=== PATIENT | male | born 1955 | race Caucasian/White ===

== ENCOUNTER 2017-12-12 09:52 | Inpatient (IN) | payer OTHER, MEDICARE ==
[~2017-12-12] VITALS: Ht 172.7 cm; Wt 113.4 kg
[~2017-12-12 09:52] MED LIST: ALPRAZOLAM2 M2 PO; AMOX-CLAV 875-1 EACH PO; AMOXICILLIN875 M1 PO; ASPIRIN325 M2 PO; ATIVAN2 MG PO; AUGMENTIN 875-1 EACH PO; AVAPRO300 M1 PO; BACTRIM DS TAB1 EACH PO; BUMETANIDE1 M1 PO; CEPHALEXIN500 M3 PO; CIALIS20 M1 PO; COLACE100 M1 PO; CYANOCOBAL1000 MCG/2 IM; DEPLIN-ALGAL O1 EAC1 PO; DESIPRAMINE HC100 MG PO; DESIPRAMINE HCL50 MG PO; ECOTRIN81 MG PO; FISH OIL CONCEN1 SGL PO; FLOMAX0.4 M1 PO; HYDRODIURIL 2525 MG PO; KEFLEX500 M1 PO; KEFLEX500 MG PO; KEY-E400 IU PO; LEVOTHYROXINE125 MCG PO; LITHIUM CARBON300 M5 PO; LOPRESSOR50 MG PO; METOPROLOL TAR100 MG PO; NEXIUM 40MG40 MG PO; NORVASC 5MG TAB5 MG PO; OMEPRAZOLE40 M1 PO; PATANASE30.5 GM NASB; PERCOCET 5-3251 EACH PO; RAPAFLO8 MG PO; RILUZOLE50 MG PO; SYNTHROID0.125 MG PO; TAMSULOSIN HYD0.4 MG PO; TOPROL XL100 M1 PO; TRAZODONE HCL100 MG PO; TRAZODONE HCL300 M1 PO; VENLAFAXINE HC150 M1 PO; VENLAFAXINE HC150 MG PO; VIAGRA100 MG PO; VICODIN5-300 PO; VITAMIN D250000 UNIT PO; VITAMIN E400 UNI3 PO
[2017-12-12 10:51] LABS: ABSOLUTE BASOPHIL COUNT 0 /CUMM (0.0-0.2); ABSOLUTE EOSINOPHIL COUNT 0.2 /CUMM (0.0-0.7); ABSOLUTE GRANULOCYTE CT 4.6 /CUMM (1.4-6.5); ABSOLUTE LYMPH COUNT 1.5 /CUMM (1.2-3.4); ABSOLUTE MONOCYTE COUNT 0.5 /CUMM (0.10-0.60); BASOPHIL % 0.3 % (0.0-2.0); EOSINOPHIL % 3.5 % (0-5); GRANULOCYTE % 67.1 % (42.2-75.2); HEMATOCRIT 42.5 % (42-52); MEAN CORPUSCULAR HGB 28.6 PG (27.0-31.0); MEAN CORPUSCULAR HGB CONC 32.2 G/DL (33.0-37.0); MEAN CORPUSCULAR VOLUME 88.9 FL (80.0-94.0); MEAN PLATELET VOLUME 8.2 FL (7.4-10.4); PLATELET COUNT 205 /CUMM (130-400); RBC DISTRIBUTION WIDTH 15.4 % (11.5-14.5); RED BLOOD CELL CT 4.78 /CUMM (4.70-6.10); WHITE BLOOD CELL COUNT 6.8 /CUMM (4.8-10.8)
[2017-12-12 11:12] LABS: PT 12.1 SEC (9.4-12.5); PTT 30 SEC (25-37)
[2017-12-12] MEDS ORDERED: METOPROLOL SUC200 M2 PO (11:34)
--- NOTE | 2017-12-12 11:38 | RADIOLOGY REPORT ---
EXAMINATION: XR CHEST CLINICAL INFORMATION: Preop. COMPARISON: Chest radiograph 12/02/2017, chest CT 02/11/2017. TECHNIQUE: 2 views of the chest were obtained. FINDINGS: The heart and pulmonary vessels appear normal. There is a question of a lung nodule seen overlying the 6th left anterior rib end. At the time of the patient's prior CT, the nipple was seen to be significantly higher. No infiltrates or effusions are seen. A left shoulder prosthesis is present. IMPRESSION: Question of left-sided lung nodule. A CT scan is recommended for further evaluation.
--- NOTE | 2017-12-12 12:33 | ED NECK/BACK PAIN COMPLAINT ---
History of Present Illness General Chief Complaint: Low Back Pain/Injury Stated Complaint: BACK PAIN Source: patient, old records Exam Limitations: no limitations Vital Signs & Intake/Output Vital Signs & Intake/Output Vital Signs Date Time Temp Pulse Resp B/P B/P Pulse O2 O2 Flow FiO2 Mean Ox Delivery Rate 12/12 1521 98.8 86 20 120/60 96 Room Air 12/12 1221 97.5 98 18 149/77 95 12/12 1218 97.3 69 18 127/65 94 12/12 0953 96.9 70 18 155/79 96 Room Air Room Air Allergies Coded Allergies: furosemide (Severe, ANAPHYLAXIS 07/22/16) amlodipine (UNKNOWN 07/22/16) Reconcile Medications Aspirin (Aspirin*) 325 MG TABLET 1 TAB PO BID ANTI-COAGULATION Bumetanide 1 MG TABLET 1 TAB PO DAILY EDEMA (Reported) Cyanocobalamin (Vitamin B-12) (Cyanocobalamin Injection) 1,000 MCG/ML VIAL 1 ML IM Q30D HEALTH SUPPLEMENT (Reported) Desipramine HCl 100 MG TABLET 1 TAB PO BID MENTAL HEALTH (Reported) Ergocalciferol (Vitamin D2) (Vitamin D2) 50,000 UNIT CAPSULE 1 CAP PO [id number] HEALTH SUPPLEMENT (Reported) Irbesartan (Avapro) 300 MG TABLET 1 TAB PO DAILY BP (Reported) Levothyroxine Sodium 125 MCG TABLET 1 TAB PO DAILY THYROID HEALTH (Reported) [place] Carbonate 300 MG TABLET 2 TAB PO QHS MENTAL HEALTH (Reported) Lorazepam (Ativan) 2 MG TABLET 0.5 TAB PO TID ANXIETY (Reported) Metformin HCl 500 MG TABLET 1 TAB PO BID DM (Reported) Metoprolol Succinate 200 MG TAB.ER.24H 1 TAB PO DAILY HEART (Reported) Mirabegron (Myrbetriq) 50 MG TAB.ER.24H 25 MG PO DAILY BPH (Reported) Omeprazole 40 MG CAPSULE.DR 1 CAP PO DAILY GERD (Reported) Tamsulosin HCl (Flomax) 0.4 MG CAP.ER.24H 1 CAP PO DAILY (Reported) Trazodone HCl 300 MG TABLET 1 TAB PO QPM PRN SLEEP (Reported) Venlafaxine HCl (Venlafaxine HCl ER) 150 MG CAP.ER.24H 2 CAP PO DAILY DEPRESSION (Reported) Triage Note: PT TO ED WITH C/O MID BACK PAIN "I HAVE HAD 8 BACK SURGERIES IN THE PAST", PT CAME FROM [facility] OFFICE. Triage Nurses Notes Reviewed? yes Onset: Abrupt Duration: week(s): (2), constant, continues in ED Timing: recent history Quality/Severity: moderate, severe Location: C-spine, T-spine HPI: 62-year-old male comes into the emergency room for further evaluation of back pain. Patient reports that he's been having increased pain over the last couple weeks. He's had some urinary incontinence and stool incontinence. Some weakness and tingling going down to his legs bilaterally. Denies any fever chills vomiting. Denies any other associated symptoms. He was sent in by orthopedic surgeon Arnold Johnson MD for surgery. (Edmond Rojo) Past History Travel History Traveled to [place] past 21 day No Medical History Any Pertinent Medical History? see below for history Neurological: NONE EENT: NONE Cardiovascular: hypertension, hyperlipidemia Respiratory: obstructive sleep apnea Gastrointestinal: GERD Hepatic: NONE Renal: NONE Musculoskeletal: MULTIPLE BACK SX RT HIP REPLACEMENT RT KNEE REPLACEMENT LT SHOULDER SX BILAT CARPAL TUNNEL SX Psychiatric: anxiety, depression, insomnia Endocrine: diabetes, hypothyroidism Blood Disorders: NONE Cancer(s): liver cancer, prostate cancer History of MRSA: No History of VRE: No History of CDIFF: No Tetanus Vaccine: 04/22/16 Surgical History Surgical History: non-contributory, R TOTAL HIP T TOTAL KNEE L SHOULDER ROTATOR CUFF PARATHYROIDECTOMY LUMBAR FUSION Psychosocial History Who do you live with Significant Other Services at Home None What is your primary language Ivorian Tobacco Use: Never used ETOH Use: occasional use Illicit Drug Use: marijuana Family History Hx Contributory? No (Edmond Rojo) Review of Systems Review of Systems Constitutional: Reports: no symptoms. Eyes: Reports: no symptoms. Ears, Nose, Throat, Mouth: Reports: no symptoms. Respiratory: Reports: no symptoms. Cardiovascular: Reports: no symptoms. Gastrointestinal/Abdominal: Reports: no symptoms. Musculoskeletal: Reports: see HPI. Skin: Reports: no symptoms. Neurological/Psychological: Reports: no symptoms. All Other Systems: Reviewed and Negative (Edmond Rojo) Physical Exam Physical Exam General Appearance: well developed/nourished, mild distress Head: atraumatic Eyes: Bilateral: normal appearance. Ears, Nose, Throat, Mouth: hearing grossly normal, moist mucous membrane Neck: normal inspection, full range of motion Respiratory: normal breath sounds, no respiratory distress Cardiovascular: regular rate/rhythm Gastrointestinal: soft, non-tender Back: normal inspection, tenderness midline Extremities: non-tender, normal range of motion Neurologic/Psych: awake, alert, oriented x 3, normal mood/affect Skin: intact, normal color, warm/dry Comments: 4/5 strength bilateral lower extremities, patellar reflex 2+ bilaterally, gross sensation intact Core Measures CVA/TIA Diagnosis: No (Raymond CANNON,Edmond) Progress Differential Diagnosis: C spine injury, carotid dissection, cauda equina syn, herniated disc, myofascial strain, pyelo/UTI, sciatica, spinal cord inj, ureterolithiasis Plan of Care: Orders Procedure Date/time Status Nothing by Mouth 12/13 B Active Regular Diet 12/12 D Complete Weight 12/12 1521 Active Vital Signs 12/12 1521 Active Teach/Educate 12/12 1521 Active Pain Treatment and Response 12/12 1521 Active Nutritional Intake, Monitor 12/12 1521 Active Isolation 12/12 1521 Active Intake & Output 12/12 1521 Active Patient Care Conference 12/12 1521 Active Activity/Ambulation 12/12 1521 Active Misc Message 12/12 1307 Active ED Holding Orders 12/12 1307 Active Admit to inpatient 12/12 1307 Active Pathway - chart 12/12 1236 Active Patient Data 12/12 1236 Active Code Status 12/12 1236 Active TROPONIN LEVEL 12/12 1026 Complete PARTIAL THROMBOPLASTIN TIME 12/12 1026 Complete PROTHROMBIN TIME 12/12 1026 Complete COMPREHENSIVE METABOLIC PANEL 12/12 1026 Complete CBC WITHOUT DIFFERENTIAL 12/12 1026 Complete EKG 12/12 1026 Active TYPE & SCREEN (NOT X-MATCH) 12/12 1026 Complete VTE Mechanical Prophylaxis 12/12 UNK Active Vital Signs 12/12 UNK Active Intake & Output 12/12 UNK Active CMS- Neurovascular Checks 12/12 UNK Active Activity/Ambulation 12/12 UNK Active Current Medications Sig/Lillian Start time Last Medication Dose Stop Time Status Admin Bumetanide 1 MG DAILY 12/13 09 AC (Bumex) Losartan Potassium 50 MG DAILY 12/13 09 AC (Cozaar) Metoprolol Succinate 200 MG DAILY 12/13 09 AC (Toprol Xl) Tamsulosin HCl 0.4 MG DAILY 12/13 09 AC (Flomax) Venlafaxine HCl 300 MG 12/13 0800 AC (Effexor Xr) Levothyroxine Sodium 0.125 MG DAILY AC 12/13 07 AC (Synthroid) Omeprazole 40 MG DAILY AC 12/13 07 AC (Prilosec) Dextrose/Sodium 1,000 ML .[id number] 12/12 2200 AC 12/12 Chloride 1418 (D5W-1/2 Normal Saline 1000ML) Desipramine HCl 100 MG BID 12/12 2099 AC (Norpramin 25MG Tab) [place] Carbonate 600 MG AT BEDTIME 12/12 2100 AC Heparin Sodium 5,000 UNIT Q8 12/12 1400 AC 12/12 (Porcine) 1417 Acetaminophen 650 MG Q4P PRN 12/12 1300 AC (Tylenol) Oxycodone/ 1 TAB Q4P PRN 12/12 1300 AC Acetaminophen (Percocet) Oxycodone/ 2 TAB Q4P PRN 12/12 1300 AC 12/12 Acetaminophen 1721 (Percocet) Lorazepam 1 MG TID PRN 12/12 1245 AC (Ativan) Ondansetron HCl 4 MG Q8P PRN 12/12 1245 AC (Zofran) Trazodone HCl 300 MG AT BEDTIME NEED.. 12/12 1245 AC (Desyrel) Zolpidem Tartrate 5 MG AT BEDTIME NEED.. 12/12 1245 CAN (Ambien) Laboratory Tests 12/12/17 1030: Anion Gap 12, Estimated GFR > 60, BUN/Creatinine Ratio 26.3 H, Glucose 129 H, Calcium 8.9, Total Bilirubin 0.6, AST 92 H, ALT 176 H, Alkaline Phosphatase 88 , Troponin I < 0.01, Total Protein 7.6, Albumin 4.5, Globulin 3.1, Albumin/ Globulin Ratio 1.5, PT 12.1, INR 1.11, APTT 30, CBC w Diff NO MAN DIFF REQ, RBC 4.78, MCV 88.9, MCH 28.6, MCHC 32.2 L, RDW 15.4 H, MPV 8.2, Gran % 67.1, Lymphocytes % 22.3, Monocytes % 6.8, Eosinophils % 3.5, Basophils % 0.3, Absolute Granulocytes 4.6, Absolute Lymphocytes 1.5, Absolute Monocytes 0.5, Absolute Eosinophils 0.2, Absolute Basophils 0 Diagnostic Imaging: Viewed by Me: Radiology Read. Discussed w/RAD: Radiology Read. Radiology Impression: PATIENT: CALDERON VAN PRESENT AGE: 62 PATIENT ACCOUNT NO: [id number] : 56 LOCATION: [facility] ORDERING PHYSICIAN: Idalmis CANNON SERVICE DATE: 12/12/17 EXAM TYPE: RAD - XRY-CHEST XRAY, TWO VIEWS EXAMINATION: XR CHEST CLINICAL INFORMATION : Preop. COMPARISON: Chest radiograph 12/02/2017, chest CT 02/11/2017. TECHNIQUE : 2 views of the chest were obtained. FINDINGS: The heart and pulmonary vessels appear normal. There is a question of a lung nodule seen overlying the 6th left anterior rib end. At the time of the patient's prior CT, the nipple was seen to be significantly higher. No infiltrates or effusions are seen. A left shoulder prosthesis is present. IMPRESSION: Question of left-sided lung nodule. A CT scan is recommended for further evaluation. DICTATED BY: Brenden Nicole MD DATE/TIME DICTATED:12/12/171101 MANAGER MANAGING:HERMES DATE/TIME TRANSCRIBED:1101 CONFIDENTIAL, DO NOT COPY WITHOUT APPROPRIATE AUTHORIZATION. 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 IV pain control. This is an extensive surgery. Short term rehabilitation. Physical therapy consultation. Repeat labs. (Edmond Rojo) PA/COVERSTITCH ELASTIC ATTACHER Co-Sign Statement Statement: ED Attending supervision documentation- [X] I saw and evaluated the patient. I have also reviewed all the pertinent lab results and diagnostic results. I agree with the findings and the plan of care as documented in the PA's/COVERSTITCH ELASTIC ATTACHER's documentation. Patient presents for evaluation of worsening herniation of the thoracic spine. Physical examination reveals normal deep tendon reflexes and sensation to the lower extremities. [] I have reviewed the ED Record and agree with the PA's/COVERSTITCH ELASTIC ATTACHER's documentation. [] Additions or exceptions (if any) to the PAs/COVERSTITCH ELASTIC ATTACHER's note and plan are summarized below: [] (Dulce Maria SALES,Petey Cardoza)
--- NOTE | 2017-12-12 12:50 | Cons- Medical ---
Reji SALES,[facility] 12/12/17 1250: General Information and HPI Consulting Request Date of Consult: 12/12/17 Requested By: Elizabeth SALES,Arnold Ricketts History of Present Illness: Patient is 62-year-old male with past medical history significant for hypertension, hyperlipidemia, DM HGA1C Jan 2018 7.5 on metformin anxiety, bipolar, depression, GERD, parathyrodectomy ? follow-up with Dr. rojo, hypothyrodism, extensive surgical history that includes 29 surgeries 8 of them for the back L3-S1 fusion last procedure 1995 who presents to ED with chief complaint of severe lower back pain associated with weakness of bilateral lower extremity and left foot numbness along with stool and urine incontinence. Patient reported new onset of low back pain 3 months ago without precipitated trauma or injury to the back, pain radiating to left leg, to bilateral legs as "an electrical shot" upon movement, bilateral lower extremity weakness with increase fall risk, total number of falls in the last 6 months is 4-5 timesdm with multiple bilateral patino bruises. On Saturday patient was evaluated by Dr. Johnson, was on pain medication and steroid pack that was prescribed by orthopedic surgeon without significant relive of his symptoms, today symptoms got worse in terms of pain and incontinence and patient was sent by Arnold Johnson MD to ED for admission. Cardiac baig; patient has abnormal reversal ischemia on nuclear imaging study of stress test, cardiac cath was obtained in 2006 with normal coronary arteries. Patient had a PET scan in 2016 that showed reduced EF 48% lightly lower than on the previous study when it was 62% 2013. A Small mild region of reversible ischemia suggested in the mid anterior wall. This is a subtle finding that could represent an imaging artifact, but the appearance appears to BE attached change since the previous study. No other perfusion abnormalities are noted. Left ventricular wall motion. Patient denied any history of chest pain, palpitation, shortness of breath. He has chronic bilateral lower extremity edema was on Lasix however due to allergy patient was switched on Bumex. Patient is able to walk 2 blocks and go up a flight of stairs without chest pain or shortness of breath. Patient does not have any history of stroke, seizures however has bipolar disorder on lithium. Patient denied any history of smoking, no asthma or COPD, reported bronchitis couple of years ago. Patient denied any history of complication to anesthesia, reported chronic neck pain due to "defect in C5" ,Last intubation was July 2017 for left knee arthroscopy without complication. Allergies/Medications Allergies: Coded Allergies: furosemide (Severe, ANAPHYLAXIS 07/22/16) amlodipine (UNKNOWN 07/22/16) Home Med List: Aspirin (Aspirin*) 325 MG TABLET 1 TAB PO BID ANTI-COAGULATION Bumetanide 1 MG TABLET 1 TAB PO DAILY EDEMA (Reported) Cyanocobalamin (Vitamin B-12) (Cyanocobalamin Injection) 1,000 MCG/ML VIAL 1 ML IM Q30D HEALTH SUPPLEMENT (Reported) Desipramine HCl 100 MG TABLET 1 TAB PO BID MENTAL HEALTH (Reported) Ergocalciferol (Vitamin D2) (Vitamin D2) 50,000 UNIT CAPSULE 1 CAP PO [id number] HEALTH SUPPLEMENT (Reported) Irbesartan (Avapro) 300 MG TABLET 1 TAB PO DAILY BP (Reported) Levothyroxine Sodium 125 MCG TABLET 1 TAB PO DAILY THYROID HEALTH (Reported) [place] Carbonate 300 MG TABLET 2 TAB PO QHS MENTAL HEALTH (Reported) Lorazepam (Ativan) 2 MG TABLET 0.5 TAB PO TID ANXIETY (Reported) Metformin HCl 500 MG TABLET 1 TAB PO BID DM (Reported) Metoprolol Succinate 200 MG TAB.ER.24H 1 TAB PO DAILY HEART (Reported) Mirabegron (Myrbetriq) 50 MG TAB.ER.24H 25 MG PO DAILY BPH (Reported) Omeprazole 40 MG CAPSULE.DR 1 CAP PO DAILY GERD (Reported) Tamsulosin HCl (Flomax) 0.4 MG CAP.ER.24H 1 CAP PO DAILY (Reported) Trazodone HCl 300 MG TABLET 1 TAB PO QPM PRN SLEEP (Reported) Venlafaxine HCl (Venlafaxine HCl ER) 150 MG CAP.ER.24H 2 CAP PO DAILY DEPRESSION (Reported) Past History Travel History Traveled to [place] past 21 day No Medical History Neurological: NONE EENT: NONE Cardiovascular: hypertension, hyperlipidemia Respiratory: obstructive sleep apnea Gastrointestinal: GERD Hepatic: NONE Renal: NONE Musculoskeletal: MULTIPLE BACK SX RT HIP REPLACEMENT RT KNEE REPLACEMENT LT SHOULDER SX BILAT CARPAL TUNNEL SX Psychiatric: anxiety, depression, insomnia Endocrine: diabetes, hypothyroidism Blood Disorders: NONE Cancer(s): liver cancer, prostate cancer Surgical History Surgical History: non-contributory, R TOTAL HIP T TOTAL KNEE L SHOULDER ROTATOR CUFF PARATHYROIDECTOMY LUMBAR FUSION Psychosocial History Services at Home: None ETOH Use: occasional use Illicit Drug Use: marijuana Functional Ability ADLs Independent: dressing, eating, toileting, bathing. Exam & Diagnostic Data Last 24 Hrs of Vital Signs/I&O Vital Signs Date Time Temp Pulse Resp B/P B/P Pulse O2 O2 Flow FiO2 Mean Ox Delivery Rate 12/12 1221 97.5 98 18 149/77 95 12/12 1218 97.3 69 18 127/65 94 12/12 0953 96.9 70 18 155/79 96 Room Air Room Air Intake & Output 12/12 1600 12/12 0800 12/12 0000 Intake Total Output Total Balance Patient 113.398 kg Weight Weight Reported by Patient Measurement Method Physical Exam General Appearance: no apparent distress, alert, awake Head: atraumatic, normal appearance Eyes: Bilateral: normal appearance, PERRL, EOMI. Ears, Nose, Throat: normal pharynx, normal ENT inspection Neck: normal inspection, supple, full range of motion, tenderness on palpation Respiratory: normal breath sounds, chest non-tender, no respiratory distress Cardiovascular: regular rate/rhythm Gastrointestinal: normal bowel sounds, soft, non-tender Back: vertebral tenderness Extremities: normal inspection, normal capillary refill, normal range of motion, bilateral lower extermities edema L>R Neurologic/Psych: awake, alert, motor/sensory deficits, of lower extermities Cranial Nerves: normal hearing, normal speech, PERRL Reflexes: 1+: ankle (R), ankle (L). Last 24 Hrs of Labs/Jose R: Laboratory Tests 12/12/17 1030: Anion Gap 12, Estimated GFR > 60, BUN/Creatinine Ratio 26.3 H, Glucose 129 H, Calcium 8.9, Total Bilirubin 0.6, AST 92 H, ALT 176 H, Alkaline Phosphatase 88 , Troponin I < 0.01, Total Protein 7.6, Albumin 4.5, Globulin 3.1, Albumin/ Globulin Ratio 1.5, PT 12.1, INR 1.11, APTT 30, CBC w Diff NO MAN DIFF REQ, RBC 4.78, MCV 88.9, MCH 28.6, MCHC 32.2 L, RDW 15.4 H, MPV 8.2, Gran % 67.1, Lymphocytes % 22.3, Monocytes % 6.8, Eosinophils % 3.5, Basophils % 0.3, Absolute Granulocytes 4.6, Absolute Lymphocytes 1.5, Absolute Monocytes 0.5, Absolute Eosinophils 0.2, Absolute Basophils 0 Diagnostic Data EKG Results Bigeminy sinus rhythm, rate 75, QTc 452 CXR Results EXAM TYPE: RAD - XRY-CHEST XRAY, TWO VIEWS EXAMINATION: XR CHEST CLINICAL INFORMATION: Preop. COMPARISON: Chest radiograph 12/02/2017, chest CT 02/11/2017. TECHNIQUE: 2 views of the chest were obtained. FINDINGS: The heart and pulmonary vessels appear normal. There is a question of a lung nodule seen overlying the 6th left anterior rib end. At the time of the patient's prior CT, the nipple was seen to be significantly higher. No infiltrates or effusions are seen. A left shoulder prosthesis is present. IMPRESSION: Question of left-sided lung nodule. A CT scan is recommended for further evaluation. Assessment/Plan Assessment/Plan Patient is 62-year-old male with past medical history significant for hypertension, hyperlipidemia, DM HGA1C Jan 2018 7.5 on metformin anxiety, bipolar, depression, GERD, parathyrodectomy ? follow-up with Dr. rojo, hypothyrodism, extensive surgical history that includes 29 surgeries 8 of them for the back L3-S1 fusion presented to ED with chief complaint of severe lower back pain associated with weakness, numbness of lower extremity and bladder bowel incontinence. On recent MRI cervical, thoracic and lumbar spine 12/06/17 it showed 1. There is severe facet arthropathy on the left at C2-C3. 2. There is a posterior disc protrusion at C5-C6 which mildly compresses the spinal cord and there is moderate to severe central stenosis. 3. Posterior disc protrusions. 4. There has been no interval change in the disc protrusion at T10-T11 which compresses the spinal cord and contributes to severe central stenosis. 5. There are posterior disc protrusions at T11-T12 and T12-L1 contributing to central stenosis and foraminal narrowing. 6. There are multilevel spondylitic changes at other levels as described above. Patient reversed cardiac index risk is 1 point 0.9% for reduced ejection fraction however no clinical congestive heart failure symptoms or signs. Patient has bigeminy on EKG with looks like new. Recommendation - Cardiac clearance consultation is pending. - We recommend obtaining bilateral lower extremity venous doppler scan to rule out DVT since patient has bilateral lower extremites swelling left more than right and his activity is suboptimal. - Please start NovoLog sliding scale as patient is diabetic on metformin as an outpatient. -Outpatient follow-up for lung nodules, patient does not have any respiratory symptoms, denied any pulmonary disease asthma, COPD, interstitial lung disease, using inhaler or requiring oxygen. Case discussed with attending Dr. Amos. Consult Acknowledgment - Thank you for your consult request. George Choe MD 12/12/17 6110: Assessment/Plan Consult Acknowledgment - Thank you for your consult request. Attending MD Review Statement Attending Statement Attending MD Statement: examined this patient, discuss w/resident/PA/MANUFACTURING COST ESTIMATOR, agreed w/resident/PA/MANUFACTURING COST ESTIMATOR, reviewed EMR data (avail), reviewed images, amended to note Attending Assessment/Plan: The patient is a 62 yo male with h/o HTN, HL, DM2, biplar (anxiety/depression), GERD, hypothyroid, h/o hyperparathyroid (s/p parathyroidectom), chronic back pain and multiple surgeries in past (29) who presente in the ED with c/o severe, progressive lower back pain with bilateral LE weakness and left foot numbness along with some stool and urinary incontinence. He has had multiple falls over last 6 months. He did receive an injection by Dr. Johnson as an outpatient and received a Medrol Dosepak orally. He does have a h/o CAD followed by Dr. Houston- had a prior equivocally positive nuclear stress test and subsequent cardiac cath that was without significant stenosis. He denies any exertional angina or dyspnea at the level of exercise he may do with back issues. On nuclear scan his LVEF was 45% (2016) compared to prior ECHO 62% (2013). Physical Exam: VS: T 96.9, P 70, R 18, BP 155/79, PO 96% RA HEENT: eyes- PERRLA, EOMI larisa- dry mucosa Neck: supple, no bruits or JVD Chest: diminished BS at bases Cor: RRR nl S1, S2 w/o murm Abd: BS+, soft, NT Ext: + bilateral edema LE L>R (chronc per patient) Neuro: alert & oriented x 3, RLE 4/5 motor, decreased sensory calf/foot LLE Labs/Tests- as above Impression/Plan: #Back Pain- patient with h/o multiple surgeries and recent MRI shows T10-11 disc herniation. Concern regarding LE numbness/weakness and ?incontinence. Cord compression would be of concern. Plan: Admit to orthopedic service- close monitoring of vitals and neuro exam LE. If deteriorates will need emergent surgery. Will plan on surgical intervention tomorrow. #CAD- h/o CAD with negative cath recently and no active ischemic symptoms. RCRI caldulated as above. Plan: Benefit of surgery outweighs risk. Await input from Dr. Houston. #HTN- BP as above. Plan: Continue ARB (was on Avapro- substitute Losartan) and Metoprolol. #Hypothyroid- on Levothyroxine. Plan: Continue Levothyroxine. #BPH- on Tamsulosin. Plan: Continue Tamsulosin. #Anxiety/Bipolar- on chronic Venlafaxine, Horicon, Trazadone. Plan: Continue meds. #GERD-on Omeprazole. Plan: Continue Omeprazole.
--- NOTE | 2017-12-12 13:07 | History & Physical Pre-Op ---
Evelin Clarke 12/12/17 1251: General Information and HPI MD Statement: I have seen and personally examined GEORGE NAIK and documented this H&P. The patient is a 62 year old M who presented with a patient stated chief complaint of [increasing pain and weakness to lower extremities]. Source of Information: patient, old records Exam Limitations: no limitations History of Present Illness: 62yo male presented to Dr Johnson at the office today for a work up for mid cervical spinal stenosis and T10-11 disc herniation. While in the office his legs buckled under him and he nearly fell. He states that he has been having progressive weakness and has noticed some stress fecal incontinence. He had a recent MRI on 12/06. Due to his worsening balance and gait abnormality, Dr Johnson felt that he would be best served with urgent intervention and he has been sent to the ED for admission. He will require medical and cardiac clearance for surgery. Allergies/Medications Allergies: Coded Allergies: furosemide (Severe, ANAPHYLAXIS 07/22/16) amlodipine (UNKNOWN 07/22/16) Past History Medical History Neurological: NONE EENT: NONE Cardiovascular: hypertension, hyperlipidemia Respiratory: obstructive sleep apnea Gastrointestinal: GERD Hepatic: NONE Renal: NONE Musculoskeletal: MULTIPLE BACK SX RT HIP REPLACEMENT RT KNEE REPLACEMENT LT SHOULDER SX BILAT CARPAL TUNNEL SX Psychiatric: anxiety, depression, insomnia Endocrine: hypothyroidism Blood Disorders: NONE History of MRSA: No History of VRE: No History of CDIFF: No Tetanus Vaccine: 04/22/16 Surgical History Pertinent Surgical History: R TOTAL HIP T TOTAL KNEE L SHOULDER ROTATOR CUFF PARATHYROIDECTOMY LUMBAR FUSION, left reverse shoulder, knee arthroscopies Past Family/Social History Psychosocial History Services at Home None Primary Language: [place] ETOH Use: occasional use Illicit Drug Use: marijuana Functional Ability ADLs Independent: dressing, eating, toileting, bathing. Review of Systems Review of Systems: See HPI Exam & Diagnostic Data Last 24 Hrs of Vital Signs/I&O Vital Signs Date Time Temp Pulse Resp B/P B/P Pulse O2 O2 Flow FiO2 Mean Ox Delivery Rate 12/12 1221 97.5 98 18 149/77 95 12/12 1218 97.3 69 18 127/65 94 12/12 0953 96.9 70 18 155/79 96 Room Air Room Air Intake & Output 12/12 1600 12/12 0800 12/12 0000 Intake Total Output Total Balance Patient 250 lb Weight Weight Reported by Patient Measurement Method Physical Exam: General: alert and oriented times three, in mild distress due to LLE pain Chest: clear anteriorly bilaterally, RRR Abd: soft, good bs Ext: 1+edema BLE Neuro: ENT: no slurring, tongue protrudes in midline, left face seems to have a slight droop at the eye and mouth although that may be normal asymmetry BUE - normosensate, good strength5/5 R leg decreased strength 4/5 at right hip, calf and foot with normal motor L leg with normal strength 5/5 throughout although pt is lying down - ambulation not assessed some numbness to LLE mostly at calf and foot per patient Assessment/Plan Assessment/Plan: 62yo male presents to the ED from the office with worsening balance and gait abnormality with a known T10-11 disc herniation. Discussed with Dr Johnson who is at the bedside admit to his service urgent OR planned for tomorrow - sooner if symptoms worsen Hospitalist (Daija) and Cardiology (Rosemarie) contacted for clearance npo after midnight pain management all labs/ekg/cxr for pre op have been ordered As Ranked By This Provider Problem List: 1. Thoracic disc herniation Elizabeth SALES,[facility]. 12/13/17 1349: General Information and HPI Allergies/Medications Home Med list Aspirin (Aspirin*) 325 MG TABLET 1 TAB PO BID ANTI-COAGULATION Bumetanide 1 MG TABLET 1 TAB PO DAILY EDEMA (Reported) Cyanocobalamin (Vitamin B-12) (Cyanocobalamin Injection) 1,000 MCG/ML VIAL 1 ML IM Q30D HEALTH SUPPLEMENT (Reported) Desipramine HCl 100 MG TABLET 1 TAB PO BID MENTAL HEALTH (Reported) Ergocalciferol (Vitamin D2) (Vitamin D2) 50,000 UNIT CAPSULE 1 CAP PO A15MGNS HEALTH SUPPLEMENT (Reported) Irbesartan (Avapro) 300 MG TABLET 1 TAB PO DAILY BP (Reported) Levothyroxine Sodium 125 MCG TABLET 1 TAB PO DAILY THYROID HEALTH (Reported) [place] Carbonate 300 MG TABLET 2 TAB PO QHS MENTAL HEALTH (Reported) Lorazepam (Ativan) 2 MG TABLET 0.5 TAB PO TID ANXIETY (Reported) Metformin HCl 500 MG TABLET 1 TAB PO BID DM (Reported) Metoprolol Succinate 200 MG TAB.ER.24H 1 TAB PO DAILY HEART (Reported) Mirabegron (Myrbetriq) 50 MG TAB.ER.24H 25 MG PO DAILY BPH (Reported) Omeprazole 40 MG CAPSULE.DR 1 CAP PO DAILY GERD (Reported) Oxycodone HCl (Roxicodone) 5 MG TABLET 1-2 TAB PO Q4-6 PRN PRN PAIN Tamsulosin HCl (Flomax) 0.4 MG CAP.ER.24H 1 CAP PO DAILY (Reported) Trazodone HCl 300 MG TABLET 1 TAB PO QPM PRN SLEEP (Reported) Venlafaxine HCl (Venlafaxine HCl ER) 150 MG CAP.ER.24H 2 CAP PO DAILY DEPRESSION (Reported) Attending MD Review Statement Attending Statement Attending MD Statement: examined this patient, discuss w/resident/PA/NATURALIZATION EXAMINER, agreed w/resident/PA/NATURALIZATION EXAMINER, reviewed EMR data (avail), reviewed images Attending Assessment/Plan: George Naik is a 62 year old chronically disabled white male with an extensive history of 8 prior lumbar surgeries (multiple discectomies, decompression and ultimately instrumented fusion from L2-L5) who presented after already having stabilized at a significantly neurologically impaired level following recent onset (3 months ago) and subsequent rapid progression ( approximately 1 month ago) of bilateral lower extremity and possible sacral root deficits associated with MRI finding of lower thoracic left greater than right osseoligamentous spinal stenosis exacebated by right herniated disk at T10-T11. His symptoms began 3 months ago with lower thoracic back pain, thoracolumbar paraspinal muscular spasm and left greater than right diffuse leg radiating pain. His rapid progression occurred approximately 1 month ago (several weeks prior to presenting to the office) and included right greater than left leg weakness, left greater than right distal greater than proximal lower extremity numbness with a distinct sensory level at the pelvic rim and inguinal fold including mild involvement of the sacral perineal distribution, left greater than right lower extremity dyscoordination and buckling associated with several falls, gait abnormality, balance difficulty and bowel urgency with minimal occasional stress fecal incontinence. His original symptom onset and his subsequent exacerbation both occurred without specific or even temporally or mechanistically related inciting event, injury or change in activity. He has recently recovered from left reverse total shoulder arthroplasty on 04/03/2017 and arthroscopic partial meniscectomy on 08/14/2017 from he recovered well. In fact, he had just fully recovered from his meniscectomy when these new symptoms began. He does report becoming more active with walking and lifting his grandchildren much more frequently after recovering from his knee surgery which is the only noticeable change that he can recall possibly being associated with his symptomatic and functional worsening. He presented to Dr. Kevin with the above, already profound, symptoms and deficits on 12/02/2017 at which point he was already having sufficient weakness and gait abnormality that he had fallen several times due to imbalance and left greater than right lower extremity buckling. Dr. Kevin immediately sent him for an MRI which was performed on 12/02/2017 and showed severe T10-T11 central canal and left greater than right osseous lateral recess lower thoracic spinal stenosis exacerbated by a right-sided disk herniation further compressing the lower spinal cord (conus ends at approximately T12-L1). Hyperintense cord signal change was seen consistent with cord contusion, myelomalacia and possibly a small central sinus syrinx distal to the compression potentially suggesting a mixed acute on chronic compressive condition. Because of his history and complex presentation, the entire spine was evaluated with separate cervical, thoracic and lumbar studies. Postoperative, degenerative and lesser compressive findings were noted in the mid-cervical spine, at the thoracolumbar junction and in the previously operated lumbar region but none that correlated as well with, appeared to significantly contribute to his primary presenting symptoms and deficits as much as the T10-T11 stenosis exacerbated by HNP at the same level. Although stenotic and possibly associated with significantly lesser symptoms and neurological sequelae his cervical compression was not felt to contraindicate surgery for his primary and potentially functionally debilitating T10-T11 level pathology. Therefore, following his workup, expedited-urgent arrangements were made for surgical decompression. Given the fact that extensive and likely destabilizing unilateral facet and costovertebral resection was planned to remove the disk herniation fragment (which was likely to remained compressive even after dorsal decompression) an uninstrumented fusion was also recommended. Despite his considerable deficit, he had stabilized at a level that he thought would allow him to continue plans for a vacation to [place] and initially wished to postpone treatment until after his return. He was counseled to cancel his his trip and have surgery on an urgent basis and, once the relative risks of immediate surgery versus delayed treatment were discussed, he very reasonably decided to proceed with surgery. Initiation of his surgical arrangements were delayed by only a few days by this patient decision-making process however there was some concern that his balance (and possibly other deficits) may have begun to further worsen during that time. Therefore, once his decision was made to proceed with surgery, he was admitted to the hospital on an urgent basis for preoperative medical optimization and clearance with surgery arranged for the next available open time (the afternoon following admission). His history of symptomatic progression is detailed in office notes. He has fallen several times due to left greater than right leg buckling but has not sustained other injury. He has been disabled for many years due to his lumbar spine which is S/P 8 prior surgeries (1980 to 1995) culminating with L2-L5 instrumented fusion. After a prolonged recovery, he did fairly well with longstanding but tolerable lower back pain but only minimal reported deficits and moderate associated functional disabilities for many years. Prior to this clinical presentation he has been able to function reasonably well with nonvigorous and even some intermittent lifting activities without recurrence or exacerbation of his lumbar conditions. He denies any significant recent history of lumbar axial or radiating symptoms and his previously operated lumbar region does not appear to be a significant contributor to his current symptoms or deficits. He has not been using a cane or walker despite indications and advice to do so when in the house and outside respectively. He understands that he will likely require ambulatory aide during his recovery from surgery and that he might need this long-term depending on the ultimate severity and chronicity of his lower spinal cord injury and deficits. His history of cervical spine, left shoulder, left knee and other symptoms contributing to his overall permanent partial impairment and total disability is detailed in office notes. His cervical spinal symptoms and mild associated radiculopathy generally correlate with radiologic findings and do not appear to contribute significantly to his current exacerbated clinical condition or contraindicate surgical treatment of his primary lower thoracic pathology. Although not contraindicating, the increased risk related to all of his other spinal, musculoskeletal, general medical and general health conditions was felt to be significant and was discussed in detail, clearly understood, accepted, reviewed and confirmed on several occasions by the patient during the consent process prior to surgery. His past medical history is significant for hypertension, hypothyroidism, depression, anxiety, BPH and GERD. There is a history of prostate cancer reported above and beyond his BPH but no additional details are given. He has had the above reported multiple lumbar surgeries, left reverse total shoulder replacement and left knee arthroscopy as well as right carpal tunnel release many years ago complicated by ulnar nerve deficit (ulnar more than radial digit extension and abduction weakness) which has been longstanding, stable and unrelated to any cervical spine symptoms. His history is otherwise unremarkable. Limited more detailed history is available in office notes and hospital medical records. Refer to those documents for additional inforamtion. Only limited outside medical records are available for review. On examination he appears his stated and recorded height, weight and age of 68 inches, 256 pounds and 62 years respectively. He is obese and, in fact, would best be classified in the high sub-morbid obesity category by World Health Organization criteria. He has a prominent and protuberant abdomen with weakened and possibly partially incompetent abdominal wall (possibly associated with partial or complete ventral hernia). His obesity, protuberant abdomen and incompetent abdominal wall musculature will likely further adversely affect his perioperative and long-term risk, treatment options, recovery, prognosis and outcome. Upon standing he has significant balance abnormality requiring noticeable and frequent corrections (often involving overcorrection and compensatory oscilating asymptotic stabilization over several seconds). Some of his overcorrections appear to be related to poorly controlled clonic lower extremity muscle responses. Once he achieves stable balance he is better able to maintain balance but does lose some control (although not as much as when he first stands from prolonged sitting) with his eyes closed. Rhomberg is partially positive with frequent corrections and near-falls (although he never did actually fall on office examination). He tends to fall backwards more than forwards which may adversely affect his ability to regain independent ambulatory function after surgery even with walker assistance and may further indicate and require inpatient rehabiliitation program postoperatively even if he gets noticeable immediate improvement (which he clearly understands cannot be predicted). His coordination deficit is primarily in the lower extremities and does not extend to the trunk or upper extremities. His ambulation is grossly antalgic, moderately ataxic and slightly spastic with a wide based stance and gait. There is a slight clonic component to his gait consistent with his lower extremity neurological examiination below. He tends to walk on his toes ( probably to prevent falling backward which is his tendency). He also tends to lock both knees (particularly his left) presumably to prevent the buckling give- way that he describes (originally only left but now bilateral, left greater than right). This ambulatory pattern seems to worsen the clonic spasticity of his gait as would be expected from the application of his heavy body weight dorsiflexion force to each foot during push-off (similar to clonus testing below which is markedly positive). He nearly fell several times during ambulation testing. He has a prominent, moderately widened and significantly hyertrophic lumbar midline incision with several smaller paramedian incisions (which appear to simply be offset midline incisions rather than intended paramedian incisions such as for percutaneous components of previous procedures) and bilateal large curvilinear posterior iliac wing incisions presumably for extensive (and possibly multiple - no records available) bilateral iliac crest autograft harvest procedures. The remainder of his spinal examination is described in detail in office notes. His lower extremity neurological examination is significant for a sensory level at approximately L1 slightly higher on the left than on the right beginning anteriorly in the inguinal region, laterally just below and posteriorly just above the iliac wing. The left sided numbness was also slightly more dense than on the right regionally. There was additional sensory deficit above and beyond this baseline in the plantar left foot which the patient stated was reminiscent of deficit that he had years ago from his earlier surgeries but which had largely resolved. Given the radiologic findings, this is more likely to represent a secondary, more proximal, lower thoracic injury to a previously compensated lumbar nerve injury than a recurrence of an old lumbar compression however the patient understands that lumbar contribution cannot be ruled out and may need to be further assessed after his more acute thoracic compression has been treated. he does have a lesser degree of saddle perineal numbness with perianal sparing. He reported that he has been able to feel normal bladder and bowel pressure and function even during his infrequent episodes of slight fecal incontinence (which are likely more related to breakthrough urgency from chronic constipation which has been his baseline and difficult for him to control for years well before this clinical exacerbatoin began). His joint position sense was grossly intact in the great toe, ankle, knee and hip. His motor strength was 5/5 in all major lower extrmeity muscle groups except for 4/5 right EHL and AT with early give-way and 3+/5 right iliopsoas strength. His quadriceps was 5/ 5 bilaterally despite his subjective complaint of giving-way of his knees with ambulation. He was able to demonstrate 5/5 strength on his left leg in all major motor groups despite that side being the one that has been buckling the longest and the most often. Heel to patino was normal bilaterally however rapid sequential motion testing revealed slowed repetitive motion consistent with his functional lower extremity dyscoordination. His lower extremity deep tendon reflexes were hyperactive diffusely except for his left achilles which was slightly hypoactive and may have been diminished at chronic baseline from his deficts and treatments many years ago. His bilateral patellar reflexes were 3+ with one post-reflex clonic beat on the right and 3 post-reflex clonic beats in the left. Suprapatellar responses were 2+. Right achillaes response was 3+ with one post-reflex clonic beat. Left achilles response was 1+-2 without additional post-reflex response. Interestingly, clonus to rapid and forceful ankle dosiflexion was greater on the left (3 beats) than on the right (1 beat) suggesting acute changes on the right and acute on chronic changes on the left. Babinski was negative bilaterally with consistently downgoing (plantar toe flexion) response to plantar foot stimulation. Rectal examination was deferred, Bilateral lower extremity vascular examination was grossly normal with 2+ DP and PT pulses, brisk capillary refill and normal cutaneous visual assessment. Neurovasular and musculoskeletal examination of his cervical and upper thoracic spine, upper extremities, lumbar spine, torso, pelvis as well as his general survey multi-system examination are described in office notes and are noncontributory and generally unremarkable except for findings correlating with his complex history as noted above. These other findings are pertinent to and will be accounted for as much as possible during his perioperative course but are not contraindicating to lower thoracic surgical intervention. Active and controlled passive Lhermitte's and Spurling testing was negative for any response thaat might suggest severe cervical spinal cord compression or significant increased risk (beyond that discussed above) of prone positioning for lower thoracic surgery. He does have baseline upper extremity deficits mostly related to previous left shoulder and carpal tunnel pathologies and his associated carpal tunnel surgery. By patient report these are at baseline and have not changed with the development of his other symptoms and deficits in balance or lower body function. His radiologic studies including multiple MRIs are described above, in office notes and in original radiology reports. Refer to those documents for additional details. The patient is being admitted on an urgent basis for recent slow progression of neurological deficit in the presence of known T10-T11 chronic osseous- ligamentous spinal stenosis likely acutely exacerbated by right paracentral disk herniation associated with lower spinal cord myelomalacia. He originally presented after a period of stable deficit without progression and so initial workup and surgical preparations were made on aan expedited basis. In addition the patient required time to make a final decision regarding proceeding with surgery. He ultimately very appropriately decided to follow recommendations and proceed with surgery particularly once he noted some further worsening. This additional progression prompted his case to be changed to urgent status and the patient was therefore admitted to the hospital on that basis. Preparations are being made for surgery at the first available open time tomorrow. Should his condition worsen further in the interim, we are prepared to further change his status to emergent and proceed with surgery sooner if necessary.
[2017-12-12] MEDS ORDERED: METFORMIN HCL500 M3 PO (13:23)
[2017-12-12] MEDS ORDERED: MYRBETRIQ50 M1 PO (13:25)
--- NOTE | 2017-12-12 14:35 | Cons- Cardiology ---
General Information and HPI Consulting Request Date of Consult: 12/12/17 Requested By: Elizabeth SALES,Arnold Ricketts Reason for Consult: Preoperative cardiovascular examination. Source of Information: patient, old records Exam Limitations: poor historian History of Present Illness: Mr. George Naik is a 62-year-old male with a history of depression , obstructive sleep apnea, hypertension, dyslipidemia, mild COPD, previous chest pain syndrome, left sided adrenal mass with marginal elevation in catecholamines with pheochromocytoma evaluation negative, primary hyperparathyroidism status post parathyroidectomy in 01/03/2010, and previous nonischemic cardiomyopathy that improved with medical management who we are asked to evaluate to help assess his suitability for noncardiac surgery. We had been asked previously to evaluate him for left shoulder surgery and had him undergo a noninvasive evaluation. An echocardiogram was performed on 2015 and revealed a normal-sized left ventricle with normal wall thickness and low normal systolic function with an estimated ejection fraction of 50-55%, normal size and functioning right ventricle, a normal size right and mildly dilated left atrium, some age-related valvular changes, no pericardial effusion, and normal size aortic root. The Doppler portion of the study revealed trace mitral, trace tricuspid, and trace pulmonic regurgitation, normal estimated PA systolic pressure of 26 mmHg, and a diastolic filling pattern consistent with impaired relaxation. A pharmacologic stress test was performed on 04/19/2016 and revealed no electrocardiographic evidence of ischemia, but nuclear evidence of ischemia in the mid anterior wall. Given these findings, he was scheduled for cardiac catheterization that was performed on 05/02/2016 at [facility] that revealed: LM-short and patent, LAD-patent, LCx-patent, RCA dominant, patent, LV gram-mild apical hypokinesis with EF 45-50%. He was cleared for the left shoulder surgery which took place on 06/06/2016 and was uneventful. He subsequently underwent a left reverse total shoulder arthroplasty for severe left shoulder rotator cuff arthropathy without complication on 04/04/2017 and a left knee arthroscopic partial medial meniscectomy and left knee chondroplasty for a left medial meniscal tear on 08/14/2017 that was also uncomplicated. Allergies/Medications Allergies: Coded Allergies: furosemide (Severe, ANAPHYLAXIS 07/22/16) amlodipine (UNKNOWN 07/22/16) Home Med List: Aspirin (Aspirin*) 325 MG TABLET 1 TAB PO BID ANTI-COAGULATION Bumetanide 1 MG TABLET 1 TAB PO DAILY EDEMA (Reported) Cyanocobalamin (Vitamin B-12) (Cyanocobalamin Injection) 1,000 MCG/ML VIAL 1 ML IM Q30D HEALTH SUPPLEMENT (Reported) Desipramine HCl 100 MG TABLET 1 TAB PO BID MENTAL HEALTH (Reported) Ergocalciferol (Vitamin D2) (Vitamin D2) 50,000 UNIT CAPSULE 1 CAP PO [id number] HEALTH SUPPLEMENT (Reported) Irbesartan (Avapro) 300 MG TABLET 1 TAB PO DAILY BP (Reported) Levothyroxine Sodium 125 MCG TABLET 1 TAB PO DAILY THYROID HEALTH (Reported) [place] Carbonate 300 MG TABLET 2 TAB PO QHS MENTAL HEALTH (Reported) Lorazepam (Ativan) 2 MG TABLET 0.5 TAB PO TID ANXIETY (Reported) Metformin HCl 500 MG TABLET 1 TAB PO BID DM (Reported) Metoprolol Succinate 200 MG TAB.ER.24H 1 TAB PO DAILY HEART (Reported) Mirabegron (Myrbetriq) 50 MG TAB.ER.24H 25 MG PO DAILY BPH (Reported) Omeprazole 40 MG CAPSULE.DR 1 CAP PO DAILY GERD (Reported) Tamsulosin HCl (Flomax) 0.4 MG CAP.ER.24H 1 CAP PO DAILY (Reported) Trazodone HCl 300 MG TABLET 1 TAB PO QPM PRN SLEEP (Reported) Venlafaxine HCl (Venlafaxine HCl ER) 150 MG CAP.ER.24H 2 CAP PO DAILY DEPRESSION (Reported) Review of Systems Review of Systems: A 14 point system review was obtained and was noncontributory, other than as above. Past History Travel History Traveled to [place] past 21 day No Medical History Neurological: NONE EENT: NONE Cardiovascular: hypertension, hyperlipidemia Respiratory: obstructive sleep apnea Gastrointestinal: GERD Hepatic: NONE Renal: NONE Musculoskeletal: MULTIPLE BACK SX RT HIP REPLACEMENT RT KNEE REPLACEMENT LT SHOULDER SX BILAT CARPAL TUNNEL SX Psychiatric: anxiety, depression, insomnia Endocrine: hypothyroidism Blood Disorders: NONE Surgical History Surgical History: R TOTAL HIP T TOTAL KNEE L SHOULDER ROTATOR CUFF PARATHYROIDECTOMY LUMBAR FUSION left reverse shoulder knee arthroscopies Psychosocial History Services at Home: None Primary Language: German ETOH Use: occasional use Illicit Drug Use: marijuana Functional Ability ADLs Independent: dressing, eating, toileting, bathing. Exam & Diagnostic Data Vital Signs and I&O Vital Signs Date Time Temp Pulse Resp B/P B/P Pulse O2 O2 Flow FiO2 Mean Ox Delivery Rate 12/12 1221 97.5 98 18 149/77 95 12/12 1218 97.3 69 18 127/65 94 12/12 0953 96.9 70 18 155/79 96 Room Air Room Air Intake & Output 12/12 1600 12/12 0800 12/12 0000 12/11 1600 12/11 0800 12/11 0000 Intake Total Output Total Balance Patient 250 lb Weight Weight Reported by Patient Measurement Method Physical Exam: Well-developed, overweight middle-aged male in no acute distress. Vital signs: See above. HEENT: Normocephalic, atraumatic, EOMI, slightly dry mucous membranes. Neck: No JVD, no bruits. Lungs: Clear to auscultation bilaterally. Heart: S1, S2 with grade 1/6 systolic murmur. No gallop or rub. PMI fifth ICS MCL. Abdomen: Soft, nontender, positive bowel sounds. Extremities: No edema. Labs/Jose R Results: Laboratory Tests 12/12 1030 Chemistry Sodium (137 - 145 mmol/L) 142 Potassium (3.5 - 5.1 mmol/L) 4.2 Chloride (98 - 107 mmol/L) 101 Carbon Dioxide (22 - 30 mmol/L) 29 Anion Gap (5 - 16) 12 BUN (9 - 20 mg/dL) 21 H Creatinine (0.7 - 1.2 mg/dL) 0.8 Estimated GFR (>60 ml/min) > 60 BUN/Creatinine Ratio (7 - 25 %) 26.3 H Glucose (65 - 99 mg/dL) 129 H Calcium (8.4 - 10.2 mg/dL) 8.9 Total Bilirubin (0.2 - 1.3 mg/dL) 0.6 AST (17 - 59 U/L) 92 H ALT (21 - 72 U/L) 176 H Alkaline Phosphatase (< 127 U/L) 88 Troponin I (<0.11 ng/ml) < 0.01 Total Protein (6.3 - 8.2 g/dL) 7.6 Albumin (3.5 - 5.0 g/dL) 4.5 Globulin (1.9 - 4.2 gm/dL) 3.1 Albumin/Globulin Ratio (1.1 - 2.2 %) 1.5 Coagulation PT (9.4 - 12.5 SEC) 12.1 INR (0.90 - 1.17) 1.11 APTT (25 - 37 SEC) 30 Hematology CBC w Diff NO MAN DIFF REQ WBC (4.8 - 10.8 /CUMM) 6.8 RBC (4.70 - 6.10 /CUMM) 4.78 Hgb (14.0 - 18.0 G/DL) 13.7 L Hct (42 - 52 %) 42.5 MCV (80.0 - 94.0 FL) 88.9 MCH (27.0 - 31.0 PG) 28.6 MCHC (33.0 - 37.0 G/DL) 32.2 L RDW (11.5 - 14.5 %) 15.4 H Plt Count (130 - 400 /CUMM) 205 MPV (7.4 - 10.4 FL) 8.2 Gran % (42.2 - 75.2 %) 67.1 Lymphocytes % (20.5 - 51.1 %) 22.3 Monocytes % (1.7 - 9.3 %) 6.8 Eosinophils % (0 - 5 %) 3.5 Basophils % (0.0 - 2.0 %) 0.3 Absolute Granulocytes (1.4 - 6.5 /CUMM) 4.6 Absolute Lymphocytes (1.2 - 3.4 /CUMM) 1.5 Absolute Monocytes (0.10 - 0.60 /CUMM) 0.5 Absolute Eosinophils (0.0 - 0.7 /CUMM) 0.2 Absolute Basophils (0.0 - 0.2 /CUMM) 0 Diagnostic Data EKG Results 12/12/2017: Sinus rhythm, multiple APCs, nonspecific intraventricular conduction delay. More ectopy when compared to previous tracing from 11/27/2011. CXR Results 12/12/2017: Question of left-sided lung nodule. A CT scan is recommended for further evaluation. Other Results MRI cervical spine 12/06/2017:: 1. There is severe facet arthropathy on the left at C2-C3 with edematous signal changes and a facet joint effusion. 2. There is a posterior disc protrusion at C5-C6 which mildly compresses the spinal cord and there is moderate to severe central stenosis. There is moderate to severe bilateral foraminal narrowing. 3. Posterior disc protrusions, facet arthropathic changes and uncovertebral osteophytes contribute to spondylosis at multiple other levels as described above. MRI thoracic spine 12/06/2017: 1. There has been no interval change in the disc protrusion at T10-T11 which compresses the spinal cord and contributes to severe central stenosis. Increased signal within the cord is consistent with myelomalacia or edema. 2. There are posterior disc protrusions at T11-T12 and T12-L1 contributing to central stenosis and foraminal narrowing, also seen on prior imaging. 3. There are multilevel spondylitic changes at other levels as described above. MRI lumbar spine 12/02/2017: 1. An incompletely visualized bulky disc herniation at T10-T11 contributes to severe canal stenosis with deformation of the normal cord contours and cord signal abnormality likely reflecting myelomalacia and/or cord edema. 2. Additional postoperative and superimposed multilevel degenerative changes as described. Assessment/Plan Assessment/Plan [id number] w/ a hx depression, STEPHANY, HTN, HLD, mild COPD, previous CP syndrome, L adrenal mass w/ marginal catecholamine elevation & negative pheochromocytoma evaluation, primary hyperparathyroidism s/p parathyroidectomy in 01/03/2010, and previous nonischemic cardiomyopathy that improved w/ medical Rx who we are asked to evaluate to help assess his suitability for noncardiac surgery. Mr. Naik is dealing with symptomatic cord compression, as documented above by MRI, and is in need of surgery. Mr. Naik has had no recent cardiac Sxs and underwent a cardiac cath at [facility] on 05/02/2016 that revealed no significant epicardial coronary disease. Based on the above, he is cleared for the proposed surgery. Consult Acknowledgment - Thank you for your consult request.
[2017-12-12 15:21] VITALS: BP 120/60
[2017-12-12 23:03] VITALS: BP 126/80
[2017-12-13 06:43] VITALS: BP 118/82
--- NOTE | 2017-12-13 08:46 | PN- Medicine Consult ---
Reji SALES,[facility] 12/13/17 0835: Assessment/PlanMedical Consult Assessment/Plan Assessment: Mr. Naik is 62-year-old male with past medical history significant for hypertension, hyperlipidemia, DM HGA1C Jan 2018 7.5 on metformin anxiety, bipolar, depression, GERD, parathyrodectomy ? follow-up with Dr. rojo, hypothyrodism, extensive surgical history that includes 29 surgeries 8 of them for the back L3-S1 fusion presented to ED with chief complaint of severe lower back pain associated with weakness, numbness of lower extremity and bladder bowel incontinence. Recommendation -Patient was cleared cardiac baig for the surgery -Pain management per surgical team -Continue home medication -Fasting blood sugar is controlled, continue Novolin every 6 hours and switch to NovoLog sliding scale after patient started eat -Consider bowel regimen as patient on Percocet every 3 hours Plan: As above Subjective Subjective: Patient was seen and examined this morning, sitting on the chair, reported back pain despite being on Percocet every 3 hours, pain interfere with his sleep. Patient is alert oriented 3 not in acute distress. Vital signs are stable. N.p.o. for the procedure this afternoon. Denied any chest pain, palpitation, cough, abdominal pain, nausea or vomiting. Review of Systems Constitutional: Reports: see HPI. Objective Last 24 Hrs of Vital Signs/I&O Vital Signs Date Time Temp Pulse Resp B/P B/P Pulse O2 O2 Flow FiO2 Mean Ox Delivery Rate 12/13 0643 97.9 60 18 118/82 97 Room Air 12/12 2303 97.8 60 18 126/80 97 Room Air 12/12 1521 98.8 86 20 120/60 96 Room Air 12/12 1221 97.5 98 18 149/77 95 12/12 1218 97.3 69 18 127/65 94 12/12 0953 96.9 70 18 155/79 96 Room Air Room Air Intake & Output 12/13 1600 12/13 0800 12/13 0000 Intake Total 600 1500 Output Total Balance 600 1500 Intake, IV 600 600 Intake, Oral 0 900 Patient 113.398 kg Weight Weight Reported by Patient Measurement Method Physical Exam General Appearance: well developed/nourished, no apparent distress, alert, awake Head: atraumatic, normal appearance Ears, Nose, Throat: normal pharynx, normal ENT inspection Neck: normal inspection, supple, full range of motion Cardiovascular: regular rate/rhythm Respiratory: normal breath sounds, chest non-tender Abdomen: normal bowel sounds, soft, non-tender Extremities: normal inspection, normal capillary refill, normal range of motion, Bilateral terace pedal edema L>R Daija SALES,George 12/13/172215: Objective Current Medications: Current Medications Sig/Lillian Start time Last Medication Dose Route Stop Time Status Admin Acetaminophen 975 MG Q8 12/13 2200 AC 12/13 PO 212 Acetaminophen 1,000 MG .STK-MED ONE 12/13 1316 DC IV 12/13 1317 Acetaminophen 650 MG Q4P PRN 12/12 1300 DC PO Bumetanide 1 MG DAILY 12/13 0900 AC 12/13 PO 0922 Cefazolin Sodium 2 GM IQ8 12/14 0000 AC N/A 1 UNIT IV 12/15 0000 Desipramine HCl 100 MG BID 12/12 2100 AC 12/13 PO 2123 Dextrose/Sodium 1,000 ML .[id number] 12/12 2200 AC 12/13 Chloride IV 213 Fentanyl Citrate 200 MCG .STK-MED ONE 12/13 1315 DC IM 12/13 1316 Heparin Sodium 5,000 UNIT Q8 12/12 1400 DC 12/13 (Porcine) SC 0554 Insulin Human Regular 0 Q6 12/12 2359 AC 12/13 SC 0554 Levothyroxine Sodium 0.125 MG DAILY AC 12/13 0700 AC 12/13 PO 0554 [place] Carbonate 600 MG AT BEDTIME 12/12 2100 AC 12/13 PO 2123 Lorazepam 1 MG TID PRN 12/12 1245 AC 12/13 PO 2134 Losartan Potassium 50 MG DAILY 12/13 0900 12/13 PO 0919 Metoprolol Succinate 200 MG DAILY 12/13 0900 AC 12/13 PO 1153 Midazolam HCl 4 MG .STK-MED ONE 12/13 1316 DC IM 12/13 1317 Morphine Sulfate 8 MG .STK-MED ONE 12/13 1315 DC IM 12/13 1316 Omeprazole 40 MG DAILY AC 12/13 0700 AC 12/13 PO 0555 Ondansetron HCl 4 MG Q8P PRN 12/12 1245 AC IV Oxycodone HCl 5 MG Q4P PRN 12/13 1930 AC PO Oxycodone HCl 10 MG Q4 HRS NEEDED PRN 12/13 1930 AC 12/13 PO 2122 Oxycodone/ 2 TAB Q3P PRN 12/12 2014 DC 12/13 Acetaminophen PO 0617 Oxycodone/ 1 TAB Q4P PRN 12/12 1300 DC Acetaminophen PO Oxycodone/ 2 TAB Q4P PRN 12/12 1300 DC 12/13 Acetaminophen PO 0922 Patient Medication 1 ED ONE ONE 12/13 1545 DC Teaching ED 12/13 1546 Tamsulosin HCl 0.4 MG DAILY 12/13 0900 AC 12/13 PO 0917 Trazodone HCl 300 MG AT BEDTIME NEED.. 12/12 1245 AC PO Venlafaxine HCl 300 MG 0800 12/13 0800 AC 12/13 PO 0916 Results Last 24 Hrs Lab/Jose R Results: Laboratory Tests 12/12/17 1030: Anion Gap 12, Estimated GFR > 60, BUN/Creatinine Ratio 26.3 H, Glucose 129 H, Calcium 8.9, Total Bilirubin 0.6, AST 92 H, ALT 176 H, Alkaline Phosphatase 88 , Troponin I < 0.01, Total Protein 7.6, Albumin 4.5, Globulin 3.1, Albumin/ Globulin Ratio 1.5, PT 12.1, INR 1.11, APTT 30, CBC w Diff NO MAN DIFF REQ, RBC 4.78, MCV 88.9, MCH 28.6, MCHC 32.2 L, RDW 15.4 H, MPV 8.2, Gran % 67.1, Lymphocytes % 22.3, Monocytes % 6.8, Eosinophils % 3.5, Basophils % 0.3, Absolute Granulocytes 4.6, Absolute Lymphocytes 1.5, Absolute Monocytes 0.5, Absolute Eosinophils 0.2, Absolute Basophils 0 Attending MD Review Statement Attending Sign Off Attending Cosign Statement: I have: examined this patient, reviewed avalbl EMR data, discussd w/resident/PA/ TWISTHAND, discussed mgmt plan w/fely, discussed mgmt plan w/pt, agreed w/resident/PA/TWISTHAND , amended to note. Other Findings: The patient was seen and discussed with resident. Appreciate Cardiology input. Medically stable for planned surgery.
--- NOTE | 2017-12-13 10:24 | ULTRASOUND REPORT ---
EXAMINATION: US TRIPLEX OF LOWER EXTREMITIES, BILATERAL CLINICAL INFORMATION: Bilateral lower extremity pain and swelling COMPARISON: None TECHNIQUE: Color-flow triplex imaging with spectral analysis and compression Doppler were performed on the lower extremities. FINDINGS: Respiratory variation, normal compression and augmented flow are noted throughout the lower extremities. The visualized common femoral vein, superficial femoral vein, profunda femoral vein, popliteal vein and midcalf peroneal and posterior tibial venous segments show no evidence of deep venous thrombosis. There is no Serrano's cyst. IMPRESSION: Normal triplex scan without evidence of deep venous thrombosis involving the lower extremities.
--- NOTE | 2017-12-13 20:58 | RADIOLOGY REPORT ---
EXAMINATION: XR THORACIC SPINE, C-arm imaging CLINICAL INFORMATION: Spine fusion in OR COMPARISON: CT abdomen pelvis 07/25/2010 TECHNIQUE: C-spine imaging for spinal fusion. Fluoroscopy time 13 seconds. Number of images. 11. FINDINGS: Spot views obtained over the lower thoracic spine for fusion of T10 and T11 vertebrae. IMPRESSION: C-spine images during fusion of T10-T11 vertebrae.
[2017-12-13 22:35] VITALS: BP 140/80
--- NOTE | 2017-12-14 01:29 | PN- Orthopedic ---
Subjective Subjective: Patient seen and evaluated for post op check. Reports moderate amount of back pain. Has not been out of bed or ambulated. Rangel in place. Drinking some fluids , but has not eaten. Last BM was several days ago. Otherwise, denies CP, palpitations, sob, n/v/d, f/c/s. Objective Vital Signs and I&Os Vital Signs Date Time Temp Pulse Resp B/P B/P Pulse O2 O2 Flow FiO2 Mean Ox Delivery Rate 12/135 98.9 108 16 140/80 98 Nasal 2.0L Cannula 12/13 2199 98 Nasal 2.0L Cannula 12/13 1153 60 128/80 12/13 0919 60 118/82 12/13 0917 60 118/82 12/13 0643 97.9 60 18 118/82 97 Room Air Intake & Output 12/14 0800 12/14 0000 12/13 1600 12/13 0800 12/13 0000 12/12 1600 Intake Total 630 317 873 4660 Output Total 310 0 Balance 320 957 272 0952 Intake, IV 150 450 600 600 Intake, Oral 480 80 0 900 Output, 60 Drainage Output, Stool 0 Output, Urine 250 Patient 250 lb 250 lb Weight Weight Reported by Patient Reported by Patient Measurement Method Physical Exam: General: pt sitting upright in bed, answering questions without difficulty, nad CV: RRR, +s1s2 Pulm: decreased in b/l bases Abdomen: obese, bs+ Extremities: 2+ DP pulses, warm and well perfused Neuro: b/l iliopsoas/hamstrings/quadrecepts 4-/5, 3+/5 L anterior tibialis/EHL, 4-/5 right anterior tibialis/EHL, several beats of clonus in left ankle, toes upgoing in left foot Wound: c/d/i, JORGE in place with 20mL blood discharge Current Medications: Current Medications Sig/Lillian Start time Last Medication Dose Route Stop Time Status Admin Acetaminophen 975 MG Q8 12/13 2199 AC 12/13 PO 2123 Acetaminophen 1,000 MG .STK-MED ONE 12/13 1316 DC IV 12/13 1317 Acetaminophen 650 MG Q4P PRN 12/12 1300 DC PO Bumetanide 1 MG DAILY 12/13 0900 AC 12/13 PO 0922 Cefazolin Sodium 2 GM IQ8 12/14 0000 AC 12/14 N/A 1 UNIT IV 12/15 0000 0031 Desipramine HCl 100 MG BID 12/12 2100 AC 12/13 PO 2123 Dextrose/Sodium 1,000 ML .[id number] 12/12 2200 AC 12/13 Chloride IV 2136 Fentanyl Citrate 200 MCG .STK-MED ONE 12/13 1315 DC IM 12/13 1316 Heparin Sodium 5,000 UNIT Q8 12/12 1400 DC 12/13 (Porcine) SC 0554 Insulin Human Regular 0 TIDAC 12/14 0800 AC SC Insulin Human Regular 0 Q6 12/12 2359 DC 12/13 SC 0554 Levothyroxine Sodium 0.125 MG DAILY AC 12/13 0700 AC 12/13 PO 0554 [place] Carbonate 600 MG AT BEDTIME 12/12 2100 AC 12/13 PO 2123 Lorazepam 1 MG TID PRN 12/12 1245 AC 12/13 PO 2134 Losartan Potassium 50 MG DAILY 12/13 0900 AC 12/13 PO 0919 Metoprolol Succinate 200 MG DAILY 12/13 0900 AC 12/13 PO 1153 Midazolam HCl 4 MG .STK-MED ONE 12/13 1316 DC IM 12/13 1317 Morphine Sulfate 8 MG .STK-MED ONE 12/13 1315 DC IM 12/13 1316 Omeprazole 40 MG DAILY AC 12/13 0700 AC 12/13 PO 0555 Ondansetron HCl 4 MG Q8P PRN 12/12 1245 AC IV Oxycodone HCl 5 MG Q4P PRN 12/13 1930 AC PO Oxycodone HCl 10 MG Q4 HRS NEEDED PRN 12/13 1930 AC 12/14 PO 0111 Oxycodone/ 2 TAB Q3P PRN 12/12 2015 DC 12/13 Acetaminophen PO 0617 Oxycodone/ 1 TAB Q4P PRN 12/12 1300 DC Acetaminophen PO Oxycodone/ 2 TAB Q4P PRN 12/12 1300 DC 12/13 Acetaminophen PO 0922 Patient Medication 1 ED ONE ONE 12/13 1545 DC Teaching ED 12/13 1546 Tamsulosin HCl 0.4 MG DAILY 12/13 0900 AC 12/13 PO 0917 Trazodone HCl 300 MG AT BEDTIME NEED.. 12/12 1245 AC 12/14 PO 0121 Venlafaxine HCl 300 MG 0800 12/13 0800 AC 04/27 PO 0916 Results Last 48 Hours of Labs: Laboratory Tests 12/12 1030 Chemistry Sodium (137 - 145 mmol/L) 142 Potassium (3.5 - 5.1 mmol/L) 4.2 Chloride (98 - 107 mmol/L) 101 Carbon Dioxide (22 - 30 mmol/L) 29 Anion Gap (5 - 16) 12 BUN (9 - 20 mg/dL) 21 H Creatinine (0.7 - 1.2 mg/dL) 0.8 Estimated GFR (>60 ml/min) > 60 BUN/Creatinine Ratio (7 - 25 %) 26.3 H Glucose (65 - 99 mg/dL) 129 H Calcium (8.4 - 10.2 mg/dL) 8.9 Total Bilirubin (0.2 - 1.3 mg/dL) 0.6 AST (17 - 59 U/L) 92 H ALT (21 - 72 U/L) 176 H Alkaline Phosphatase (< 127 U/L) 88 Troponin I (<0.11 ng/ml) < 0.01 Total Protein (6.3 - 8.2 g/dL) 7.6 Albumin (3.5 - 5.0 g/dL) 4.5 Globulin (1.9 - 4.2 gm/dL) 3.1 Albumin/Globulin Ratio (1.1 - 2.2 %) 1.5 Coagulation PT (9.4 - 12.5 SEC) 12.1 INR (0.90 - 1.17) 1.11 APTT (25 - 37 SEC) 30 Hematology CBC w Diff NO MAN DIFF REQ WBC (4.8 - 10.8 /CUMM) 6.8 RBC (4.70 - 6.10 /CUMM) 4.78 Hgb (14.0 - 18.0 G/DL) 13.7 L Hct (42 - 52 %) 42.5 MCV (80.0 - 94.0 FL) 88.9 MCH (27.0 - 31.0 PG) 28.6 MCHC (33.0 - 37.0 G/DL) 32.2 L RDW (11.5 - 14.5 %) 15.4 H Plt Count (130 - 400 /CUMM) 205 MPV (7.4 - 10.4 FL) 8.2 Gran % (42.2 - 75.2 %) 67.1 Lymphocytes % (20.5 - 51.1 %) 22.3 Monocytes % (1.7 - 9.3 %) 6.8 Eosinophils % (0 - 5 %) 3.5 Basophils % (0.0 - 2.0 %) 0.3 Absolute Granulocytes (1.4 - 6.5 /CUMM) 4.6 Absolute Lymphocytes (1.2 - 3.4 /CUMM) 1.5 Absolute Monocytes (0.10 - 0.60 /CUMM) 0.5 Absolute Eosinophils (0.0 - 0.7 /CUMM) 0.2 Absolute Basophils (0.0 - 0.2 /CUMM) 0 Assessment/Plan Assessment/Plan This is a 62 y/o M w/ PMHx of HTN, HLD, DM, anxiety, bipolar, depression, GERD, and extensive surgical history including multiple spinal surgerys who is now POD #1 s/p T10-T11 laminectomy and diskectomy -Continue current pain meds - ISS, CBGs, hypoglycemia protocol - Bowel regimen - Continue home cardiac meds - continue home psych meds - PT/OT evaluation and treatment - OOB with assistance - Monitor drain output Core Measures Venous Thromboembolism VTE Risk Factors Surgery No Mechanical VTE Prophylaxis d/t N/A MechProphylax Ordered No VTE Pharm Prophylaxis d/t Surgical Contraindication
[2017-12-14 06:13] VITALS: BP 124/76
[2017-12-14 08:32] LABS: ABSOLUTE BASOPHIL COUNT 0 /CUMM (0.0-0.2); ABSOLUTE EOSINOPHIL COUNT 0 /CUMM (0.0-0.7); ABSOLUTE GRANULOCYTE CT 8.3 /CUMM (1.4-6.5); ABSOLUTE LYMPH COUNT 0.7 /CUMM (1.2-3.4); ABSOLUTE MONOCYTE COUNT 0.1 /CUMM (0.10-0.60); BASOPHIL % 0.1 % (0.0-2.0); EOSINOPHIL % 0 % (0-5); GRANULOCYTE % 91.2 % (42.2-75.2); MEAN CORPUSCULAR HGB CONC 32.5 G/DL (33.0-37.0); MEAN CORPUSCULAR VOLUME 89.1 FL (80.0-94.0); MEAN PLATELET VOLUME 8.4 FL (7.4-10.4); PLATELET COUNT 190 /CUMM (130-400); RBC DISTRIBUTION WIDTH 15.4 % (11.5-14.5); RED BLOOD CELL CT 3.89 /CUMM (4.70-6.10)
--- NOTE | 2017-12-14 11:17 | PN- Orthopedic ---
Subjective Subjective: 62-year-old male who is postop day 1 from T10-11 laminectomy and in situ fusion. He is doing well postop without complaints. He is able to sit up and feels that his leg pain and strength have improved postop. No nausea and has an appetite this morning Objective Vital Signs and I&Os Vital Signs Date Time Temp Pulse Resp B/P B/P Pulse O2 O2 Flow FiO2 Mean Ox Delivery Rate 12/14 08 98.0 87 16 124/76 12/14 0805 98.0 87 16 124/12/14 0804 98.0 87 16 124/76 12/14 0613 98.0 87 16 100 Nasal 2.0L Cannula 12/13 2235 98.9 108 16 140/80 98 Nasal 2.0L Cannula 12/13 2200 98 Nasal 2.0L Cannula 12/13 1153 60 128/80 Intake & Output 12/14 1600 12/14 0800 12/14 0000 12/13 1600 12/13 0800 12/13 0000 Intake Total 720 630 619 255 6099 Output Total 1150 310 0 Balance -430 320 405 733 6675 Intake, IV 700 150 450 600 600 Intake, Oral 20 480 80 0 900 Output, 50 60 Drainage Output, Stool 0 Output, Urine 1100 250 Patient 250 lb Weight Weight Reported by Patient Measurement Method Physical Exam: And is alert and oriented lying in bed appears comfortable without complaints chest is clear to auscultation symmetric without rales rhonchi or wheeze Heart is regular rate rhythm without murmurs rubs gallops Abdomen is rounded without distention nontender to palpation Had no Rangel placed after surgery and is able to void Name is in place and output is approximately 50-60 mL each shift Wound is clean dry and intact without drainage Admission Lab Results I reviewed the following labs: Laboratory Tests 12/14 604 Chemistry Sodium (137 - 145 mmol/L) 140 Potassium (3.5 - 5.1 mmol/L) 4.6 Chloride (98 - 107 mmol/L) 100 Carbon Dioxide (22 - 30 mmol/L) 29 Anion Gap (5 - 16) 10 BUN (9 - 20 mg/dL) 19 Creatinine (0.7 - 1.2 mg/dL) 0.9 Estimated GFR (>60 ml/min) > 60 BUN/Creatinine Ratio (7 - 25 %) 21.1 Magnesium (1.6 - 2.3 mg/dL) 2.0 Hematology CBC w Diff Pending WBC Pending RBC Pending Hgb Pending Hct Pending MCV Pending MCH Pending MCHC Pending RDW Pending Plt Count Pending MPV Pending Assessment/Plan Assessment/Plan Patient is postop day 1 after T10-11 lumbar laminectomy for acute compression and worsening myelopathy of his bilateral lower extremities. Currently he feels marked improved after the decompression. He is PT out of bed and advance diet. Drains will remain in place until minimal output and he will remain on Ancef until they are removed Core Measures Venous Thromboembolism VTE Risk Factors Surgery No Mechanical VTE Prophylaxis d/t N/A MechProphylax Ordered No VTE Pharm Prophylaxis d/t Surgical Contraindication
[2017-12-14 11:46] LABS: HEMATOCRIT 34.6 % (42-52)
[2017-12-14 11:48] LABS: WHITE BLOOD CELL COUNT 9.1 /CUMM (4.8-10.8)
[2017-12-14 13:56] VITALS: BP 140/70
--- NOTE | 2017-12-14 14:14 | PN- Medicine Consult ---
Assessment/PlanMedical Consult Assessment/Plan Assessment: Impression 62-year-old man * Postop day 1 T10 to 11 laminectomy/in situ fusion * Diabetes Plan: Pain is well controlled. Physical therapy is ordered. Drains and antibiotics per surgical team. Monitor his fingersticks. Continue bowel regimen while on pain medications. Continue Toprol, Cozaar, Bumex, Flomax. Once diet is fully advanced would discontinue IV fluids. Continue insulin sliding scale. DVT prophylaxis at all times - when able from the surgical perspective would initiate chemical prophylaxis for now ALPS Subjective Subjective: Feeling better he's out of bed his sugars have been controlled fluids will be stopped his diet has been advanced. Objective Last 24 Hrs of Vital Signs/I&O Vital Signs Date Time Temp Pulse Resp B/P B/P Pulse O2 O2 Flow FiO2 Mean Ox Delivery Rate 12/14 1356 98.4 77 20 140/70 97 Room Air 12/14 0805 98.0 87 16 124/76 12/14 0805 98.0 87 16 124/76 12/14 0804 98.0 87 16 124/76 12/14 0613 98.0 87 16 124/76 100 Nasal 2.0L Cannula 12/13 2235 98.9 108 16 140/80 98 Nasal 2.0L Cannula 12/13 2200 98 Nasal 2.0L Cannula Intake & Output 12/14 1600 12/14 0800 12/14 0000 Intake Total 720 630 Output Total 1150 310 Balance -430 320 Intake, IV 700 150 Intake, Oral 20 480 Output, 50 60 Drainage Output, Urine 1100 250 Physical Exam Other Physical Findings: Patient is awake and alert. His heart sounds are normal his lung sounds are normal. He has no edema. Surgical site is intact with dressings. Current Medications: Current Medications Sig/Lillian Start time Last Medication Dose Route Stop Time Status Admin Acetaminophen 975 MG .STK-MED ONE 12/14 0556 DC PO 12/14 0557 Acetaminophen 975 MG Q8 12/13 2200 AC 12/14 PO 0557 Acetaminophen 650 MG Q4P PRN 12/12 1300 DC PO Bumetanide 1 MG DAILY 12/13 0900 AC 12/14 PO 0857 Cefazolin Sodium 2 GM IQ8 12/14 0000 AC 12/14 N/A 1 UNIT IV 12/15 0000 0806 Desipramine HCl 100 MG BID 12/12 2100 AC 12/14 PO 0857 Dexamethasone 12 MG .STK-MED ONE 12/13 192 DC IM 12/13 192 Dextrose/Sodium 1,000 ML .[id number] 12/12 2200 AC 12/13 Chloride IV 2136 Docusate Sodium 100 MG BID 12/14 0900 AC 12/14 PO 0806 Heparin Sodium 5,000 UNIT Q8 12/12 1400 DC 12/13 (Porcine) SC 0554 Insulin Human Regular 0 TIDAC 12/14 0800 AC 12/14 SC 1157 Insulin Human Regular 0 Q6 12/12 2359 DC 12/13 SC 0554 Levothyroxine Sodium 0.125 MG DAILY AC 12/13 0700 AC 12/14 PO 0556 [place] Carbonate 600 MG AT BEDTIME 12/12 2100 AC 12/13 PO 2123 Lorazepam 1 MG TID PRN 12/12 1245 AC 12/13 PO 2134 Losartan Potassium 50 MG DAILY 12/13 0900 AC 12/14 PO 0805 Metoprolol Succinate 200 MG DAILY 12/13 0900 AC 12/14 PO 0804 Morphine Sulfate 4 MG .STK-MED ONE 12/14 1955 DC IM 12/13 1956 Morphine Sulfate 4 MG .STK-MED ONE 12/13 194 DC IM 12/13 194 Morphine Sulfate 4 MG .STK-MED ONE 12/13 193 DC IM 12/13 193 Morphine Sulfate 4 MG .STK-MED ONE 12/13 1921 DC IM 12/13 1922 Omeprazole 40 MG DAILY AC 12/13 0700 AC 12/14 PO 0556 Ondansetron HCl 4 MG Q8P PRN 12/12 1245 AC IV Oxycodone HCl 5 MG Q4P PRN 12/13 1930 AC PO Oxycodone HCl 10 MG Q4 HRS NEEDED PRN 12/13 1930 AC 12/14 PO 1157 Oxycodone/ 2 TAB Q3P PRN 12/12 2015 DC 12/13 Acetaminophen PO 0617 Oxycodone/ 1 TAB Q4P PRN 12/12 1300 DC Acetaminophen PO Oxycodone/ 2 TAB Q4P PRN 12/12 1300 DC 12/13 Acetaminophen PO 0922 Patient Medication 1 ED ONE ONE 12/13 1545 DC Teaching ED 12/13 1546 Polyethylene Glycol 17 GM DAILY PRN 12/14 0145 AC 12/14 PO 0857 Tamsulosin HCl 0.4 MG DAILY 12/13 0900 AC 12/14 PO 0805 Trazodone HCl 300 MG AT BEDTIME NEED.. 12/12 1245 AC 12/14 PO 0121 Venlafaxine HCl 300 MG 0800 12/13 0800 AC 12/14 PO 0804 Results Last 24 Hrs Lab/Jose R Results: Laboratory Tests 12/14/17 06: Anion Gap 10, Estimated GFR > 60, BUN/Creatinine Ratio 21.1, Magnesium 2.0, CBC w Diff NO MAN DIFF REQ, RBC 3.89 L, MCV 89.1, MCH 29.0, MCHC 32.5 L, RDW 15.4 H, MPV 8.4, Gran % 91.2 H, Lymphocytes % 7.3 L, Monocytes % 1.4 L, Eosinophils % 0, Basophils % 0.1, Absolute Granulocytes 8.3 H, Absolute Lymphocytes 0.7 L, Absolute Monocytes 0.1, Absolute Eosinophils 0, Absolute Basophils 0
[2017-12-14 22:07] VITALS: BP 110/60
[2017-12-15 06:16] VITALS: BP 130/74
--- NOTE | 2017-12-15 11:14 | PN- Orthopedic ---
Subjective Subjective: Patient today is sitting upright in bed with no complaints pain is controlled. He is tolerating a regular diet but not has not had a bowel movement yet. He is urinating without difficulty. Overall today he feels better in terms of his lower extremity motor strength, he has a woolly stocking feeling over both of his feet Review of Systems: No fevers or chills Strength of his legs improving per patient I has sensory deficits in his lower extremities Objective Vital Signs and I&Os Vital Signs Date Time Temp Pulse Resp B/P B/P Pulse O2 O2 Flow FiO2 Mean Ox Delivery Rate 12/15 0759 98.2 81 20 130/74 12/15 0759 98.2 81 20 130/74 12/15 0757 98.2 81 20 130/74 12/15 0616 98.2 81 20 130/74 98 Room Air 12/14 2207 98.2 77 20 110/60 97 12/14 1439 Room Air Room Air 12/14 1356 98.4 77 20 140/70 97 Room Air Intake & Output 12/15 1600 12/15 0800 12/15 0000 12/14 1600 12/14 0800 12/14 0000 Intake Total 630 630 440 720 630 Output Total 875 204 176 4814 310 Balance -245 -290 -290 -430 320 Intake, IV 150 150 200 700 150 Intake, Oral 480 480 240 20 480 Output, 25 20 30 50 60 Drainage Output, Urine 850 267 152 6409 250 Physical Exam: On physical examination patient is laying in bed alert and oriented and is comfortable Chest is clear to auscultation symmetric without rales rhonchi or wheeze Is regular rhythm without murmurs rubs gallops Then is rounded without distention, he has a large protuberant abdomen but this is normal for him The bowel sounds no tenderness Bilateral lower extremities calves are soft Total pulses are intact Restraint bilateral straight leg raise 3/5 EHL 4/5 sensory intact-intermittent burning of his feet Assessment/Plan Assessment/Plan Postop day #3 after T 10-11 decompression laminectomy and in situ bone graft He has bilateral lower extremity myelopathy that is somewhat improving. Started on a Decadron taper yesterday that will be finished tomorrow. Prophylaxis will be alps regular diet PT D/C planning for tomorrow Core Measures Venous Thromboembolism VTE Risk Factors Surgery No Mechanical VTE Prophylaxis d/t N/A MechProphylax Ordered No VTE Pharm Prophylaxis d/t Surgical Contraindication
--- NOTE | 2017-12-15 13:19 | PN- Medicine Consult ---
Assessment/PlanMedical Consult Assessment/Plan Assessment: Impression 62-year-old man * Postop day 1 T10 to 11 laminectomy/in situ fusion * Diabetes Plan: -pain control -PT -drains removed -Monitor his fingersticks -Continue bowel regimen while on pain medications. -Continue Toprol, Cozaar, Bumex, Flomax. -Continue insulin sliding scale. -on Decadron DVT prophylaxis at all times - when able from the surgical perspective would initiate chemical prophylaxis for now ALPS Subjective Subjective: Feeling much better. Drains are removed. Out of bed to chair. Awaiting for rehabilitation. Objective Last 24 Hrs of Vital Signs/I&O Vital Signs Date Time Temp Pulse Resp B/P B/P Pulse O2 O2 Flow FiO2 Mean Ox Delivery Rate 12/15 0759 98.2 81 20 130/74 12/15 0759 98.2 81 20 130/74 12/15 0757 98.2 81 20 130/74 12/15 0616 98.2 81 20 130/74 98 Room Air 12/14 2207 98.2 77 20 110/60 97 12/14 1439 Room Air Room Air 12/14 1356 98.4 77 20 140/70 97 Room Air Intake & Output 12/15 1600 12/15 0800 12/15 0000 Intake Total 630 630 Output Total 875 920 Balance -245 -290 Intake, IV 150 150 Intake, Oral 480 480 Output, 25 20 Drainage Output, Urine 850 900 Physical Exam Other Physical Findings: Patient is awake and alert. His heart sounds are normal his lung sounds are normal. He has no edema. Surgical site is intact with dressings, drains are removed. Current Medications: Current Medications Sig/Lillian Start time Last Medication Dose Route Stop Time Status Admin Acetaminophen 975 MG .STK-MED ONE 12/14 2037 DC PO 12/14 2038 Acetaminophen 975 MG .STK-MED ONE 12/14 1420 DC PO 12/14 1421 Acetaminophen 975 MG Q8 12/13 2200 AC 12/15 PO 0549 Bumetanide 1 MG DAILY 12/13 0900 AC 12/15 PO 0759 Cefazolin Sodium 2 GM IQ8 12/14 0000 DC 12/14 N/A 1 UNIT IV 12/15 0000 2340 Desipramine HCl 100 MG BID 12/12 2100 AC 12/15 PO 0800 Dexamethasone 2 MG Q6 12/16 0600 AC Sodium Chloride 50 ML IV 12/16 1229 Dexamethasone 4 MG Q6 12/15 1800 AC Sodium Chloride 50 ML IV 12/16 0028 Dexamethasone 6 MG Q6 12/15 0600 DC 12/15 Sodium Chloride 50 ML IV 12/15 1229 1135 Dexamethasone 8 MG Q6 12/14 1800 DC 12/15 Sodium Chloride 50 ML IV 12/15 0028 0030 Dextrose/Sodium 1,000 ML .[id number] 12/12 2200 DC 12/13 Chloride IV 2136 Docusate Sodium 100 MG BID 12/14 0900 AC 12/15 PO 0801 Insulin Human Regular 0 TIDAC 12/14 0800 AC 12/15 SC 1159 Levothyroxine Sodium 0.125 MG DAILY AC 12/13 0700 AC 12/15 PO 0548 [place] Carbonate 600 MG AT BEDTIME 12/12 2100 AC 12/14 PO 2042 Lorazepam 1 MG TID PRN 12/12 1245 AC 12/14 PO 1654 Losartan Potassium 50 MG DAILY 12/13 0900 AC 12/15 PO 0759 Metoprolol Succinate 200 MG DAILY 12/13 0900 AC 12/15 PO 0757 Omeprazole 40 MG DAILY AC 12/13 0700 AC 12/15 PO 0548 Ondansetron HCl 4 MG Q8P PRN 12/12 1245 AC IV Oxycodone HCl 5 MG Q4P PRN 12/13 1930 AC PO Oxycodone HCl 10 MG Q4 HRS NEEDED PRN 12/13 1930 AC 12/15 PO 1135 Polyethylene Glycol 17 GM DAILY PRN 12/14 0145 AC 12/14 PO 0857 Tamsulosin HCl 0.4 MG DAILY 12/13 0900 AC 12/15 PO 0759 Trazodone HCl 300 MG AT BEDTIME NEED.. 12/12 1245 AC 12/14 PO 0121 Venlafaxine HCl 300 MG 0800 12/13 0800 AC 12/15 PO 0758 Results Last 24 Hrs Lab/Jose R Results: in chart
[2017-12-15 13:43] VITALS: BP 146/90
--- NOTE | 2017-12-15 15:47 | PN- Cardiology ---
Subjective Subjective: The patient is stable postoperatively. He denies any cardiac symptoms or issues. Only complaint is mild back discomfort. Sitting in bedside chair comfortably. Objective Vital Signs and I&Os Vital Signs Date Time Temp Pulse Resp B/P B/P Pulse O2 O2 Flow FiO2 Mean Ox Delivery Rate 12/15 1343 97.6 77 17 146/90 95 Room Air 12/15 0759 98.2 81 20 130/74 12/15 0759 98.2 81 20 130/74 12/15 0757 98.2 81 20 130/74 12/15 0616 98.2 81 20 130/74 98 Room Air 12/14 2207 98.2 77 20 110/60 97 Intake & Output 12/15 1600 12/15 0800 12/15 0000 12/14 0000 Intake Total 630 630 440 720 630 Output Total 875 304 872 0519 310 Balance -245 -290 -290 -430 320 Intake, IV 150 150 200 700 150 Intake, Oral 480 480 240 20 480 Output, 25 20 30 50 60 Drainage Output, Urine 850 813 557 1805 250 Physical Exam: General Appearance: no apparent distress, alert, awake Head: atraumatic, normal appearance Eyes: Bilateral: normal appearance, PERRL, EOMI. Ears, Nose, Throat: normal pharynx, normal ENT inspection Neck: normal inspection, supple, full range of motion, tenderness on palpation Respiratory: normal breath sounds, chest non-tender, no respiratory distress Cardiovascular: regular rate/rhythm; 1/6 systolic murmur Gastrointestinal: normal bowel sounds, soft, non-tender Extremities: normal inspection, normal capillary refill, normal range of motion, bilateral lower extermities edema L>R Neurologic/Psych: non focal Current Medications: Current Medications Sig/Lillian Start time Last Medication Dose Route Stop Time Status Admin Acetaminophen 975 MG .STK-MED ONE 12/15 0547 DC PO 12/16 547 Acetaminophen 975 MG .STK-MED ONE 12/14 2037 DC PO 12/14 2038 Acetaminophen 975 MG Q8 12/13 220 AC 12/15 PO 1340 Bumetanide 1 MG DAILY 12/13 0900 AC 12/15 PO 0759 Cefazolin Sodium 2 GM IQ8 12/14 0000 DC 12/14 N/A 1 UNIT IV 12/15 0000 2340 Desipramine HCl 100 MG BID 12/12 2100 AC 12/15 PO 0800 Dexamethasone 2 MG Q6 12/16 0600 AC Sodium Chloride 50 ML IV 12/16 1229 Dexamethasone 4 MG Q6 12/15 1800 AC Sodium Chloride 50 ML IV 12/16 0028 Dexamethasone 6 MG Q6 12/15 0600 DC 12/15 Sodium Chloride 50 ML IV 12/15 1229 1135 Dexamethasone 8 MG Q6 12/14 1800 DC 12/15 Sodium Chloride 50 ML IV 12/15 0028 0030 Docusate Sodium 100 MG BID 12/14 09 AC 12/15 PO 0801 Insulin Human Regular 0 TIDAC 12/14 0800 AC 12/15 SC 1159 Levothyroxine Sodium 0.125 MG DAILY AC 12/13 07 AC 12/15 PO 0548 [place] Carbonate 600 MG AT BEDTIME 12/12 2100 AC 12/14 PO 2042 Lorazepam 1 MG TID PRN 12/12 1245 AC 12/14 PO 1654 Losartan Potassium 50 MG DAILY 12/13 09 AC 12/15 PO 0759 Metoprolol Succinate 200 MG DAILY 12/13 09 AC 12/15 PO 0757 Omeprazole 40 MG DAILY AC 12/13 07 AC 12/15 PO 0548 Ondansetron HCl 4 MG Q8P PRN 12/12 124 AC IV Oxycodone HCl 5 MG Q4P PRN 12/13 193 AC PO Oxycodone HCl 10 MG Q4 HRS NEEDED PRN 12/13 1930 AC 12/15 PO 1135 Polyethylene Glycol 17 GM DAILY PRN 12/14 0145 AC 12/14 PO 0857 Tamsulosin HCl 0.4 MG DAILY 12/13 09 AC 12/15 PO 0759 Trazodone HCl 300 MG AT BEDTIME NEED.. 12/12 1245 AC 12/14 PO 0121 Venlafaxine HCl 300 MG 0812/13 0800 AC 12/15 PO 0758 Results Last 48 Hrs of Labs/Mics: Laboratory Tests 12/14/17 06: Anion Gap 10, Estimated GFR > 60, BUN/Creatinine Ratio 21.1, Magnesium 2.0, CBC w Diff NO MAN DIFF REQ, RBC 3.89 L, MCV 89.1, MCH 29.0, MCHC 32.5 L, RDW 15.4 H, MPV 8.4, Gran % 91.2 H, Lymphocytes % 7.3 L, Monocytes % 1.4 L, Eosinophils % 0, Basophils % 0.1, Absolute Granulocytes 8.3 H, Absolute Lymphocytes 0.7 L, Absolute Monocytes 0.1, Absolute Eosinophils 0, Absolute Basophils 0 Assessment/Plan Assessment/Plan Assessment: 1. Postoperative day one status post back surgery 2. History of chest pain syndrome 3. Hypertension 4. Hyperlipidemia 5. History of sleep apnea 6. History of prior nonischemic cardiomyopathy Recommendations: -Patient is stable today with no Cardec symptoms or issues postoperatively. -Continue current treatment regimen -Please call us if any new issues or problems should arise. Continue telemetry? No
--- NOTE | 2017-12-15 17:01 | Operative Report ---
Operative/Inv Procedure Report Surgery Date: 12/13/17 Name of Procedure: 1) T10 Decompressive Interpedicular Laminectomy With T10-T11 Right Complete And Left Partial Medial Facetectomies, Right Unroofing And Left Medial Expanding Foraminotomies For Complete Dorsal, Dorsolateral And Lateral Decompression Of Traversing And Exiting Neural Elements (Elizabeth/Lokesh, P.A.-C) 2) T11 Decompressive Interpedicular Superior Laminectomy For Complete Dorsal , Dorsolateral And Lateral Decompression Of Traversing Neural Elements (Elizabeth /Lokesh, P.A.-C) 3) T10-T11 Right Costotransversectomy For Right Neurodecompressive Discectomy And Complete Ventrolateral And Midline Ventral Decompression Of Traversing And Exiting Neural Elements (Elizabeth/Lokesh, P.A.-C) 4) T10-T11 Posterobilateral Intertransverse Process Uninstrumented Fusion ( Elizabeth/Lokesh, P.A.-C) 5) Preparation And Implantation Of T10-T11 Posterobilateral Intertransverse Process Nonstructural Allograft Subtitute Osteopromotive Material (Elizabeth) 6) Stuyvesant, Preparation And Implantation Of T10-T11 Posterobilateral Intertransverse Process Morselized Local Autograft (Elizabeth) Pre-Operative Diagnosis: Primary Surgically Treated Diagnoses: 1) T10-T11 Right Lower Thoracic Intervertebral Disc Disorder (Moderate Right Paracentral Neurocompressive Disk Herniation) With Directly Associated Myelopathy (Moderate Lower Torso And Bilateral Lower Extremity Sensory Deficit Below Upper Inguinal Level And Diffuse Weakness With Nearly But Not Full Sacral Sparing, Dyscoordination, Balance Abnormality And Ambulatory Difficulty With Frequent Falls As Well As Intermittent Stress Incontinence Correlating With The T10 Lower Spinal Cord Compressive Level) (* = Refer Here As Well As Elsewhere In This Diagnosis List And Document For Detailed Myelopathy Symptom And Finding Description) 2) T10-T11 Bilateral (Left Greater Than Right) Lower Thoracic Spondylosis With Directly Associated Myelopathy* Correlating With The T10 Spinal Cord Level 3) T10-T11 Circumferential Severe Centrobilateral Zone (Severe Central Canal And Bilateral Recess As Well As Moderate Bilateral Foraminal) Osseous As Well As Hypertrophic Degenerative Ligamentous Soft Tissue And Compressive Exacerbating Herniated Nucleus Pulposus Disk Space Level Lower Thoracic Spinal Stenosis 4) Right Lower Extremity Proximal (Moderate Iliopsoas) And Distal (Moderate Extensor Hallucis Longus And Anterior Tibialis) Subjective And Objectively Documented As Well As Left Lower Extremity Proximal (Moderate To Severe Intermittent And Spasmodic Iliopsoas And Quadriceps) Subjective Motor Neurological Deficit With Episodes Of Early Fatigue And Giving Way 5) T10 Level Myelopathy* Secondary Surgically Treated Diagnoses: 6) Gait Disturbance And Significant Difficulty With Ambulation 7) Bilateral Proximal And Distal Lower Extremity Neurogenic Dyscoordination 8) Diffuse Bilateral Lower Extremity Abnormal (Hyperactive And Abherent) Reflexes 9) Frequent Falls 10) Bilateral Lower Thoracic, Thoracolumbar, Diffuse Lumbar, Lumbosacral And Sacral Severe Pelvic (Inguinal And Hip Region), Moderate Proximal (Thigh And Knee Region), Moderate Mid (Calf And Ankle Region) And Moderate Distal (Foot Region) Distribution Lower Extremity Hypoesthetic Disturbance Of Skin Sensation With Dysesthesia 11) Bilateral Lower Thoracic And More Distal Lower Extremity Distribution ( Same Distribution As For Hypoesthesia Above) Paresthetic (Including Plantar Left Foot Hyperesthetic And Dysesthetic) Disturbance Of Skin Sensation 12) T10-T11 Level Spinal Cord Compression 13) T10-T11 Level Myelomalacia 14) T10-T11 Right Lower Thoracic Intervertebral Disc Disorder (Moderate Right Paracentral Neurocompressive Disk Herniation) With Directly Associated Moderate Bilateral Lower Thoracic Distribution Radiculopathy (Bilateral, Right Greater Than Left, Upper Inguinal Constant Numbness And Intermittent Pain Radiation Generally Consistent With The T10 Exiting And T11 Traversing Spinal Nerve Root Radicular Level Distributions) ( = Refer Here As Well As Elsewhere In This Diagnosis List And Document For Detailed Thoracic Radiculopathy Symptom And Finding Description) 15) T10-T11 Bilateral (Left Greater Than Right) Lower Thoracic Spondylosis With Directly Associated Moderate Bilateral Lower Thoracic Distribution Radiculopathy 16) T10 Bilateral Lower Thoracic Distribution Radiculopathy 17) L1 And Below Bilateral Proximal, Mid- And Distal Bilateral Indirect Versus Concurrent And Separate Lumbar Lower Extremity Distribution Radiculopathy (See Office And Admission Documents For Details) 18) T10-T11 Bilateral (Left Greater Than Right) (Mild Right And Moderate Encroaching Left) Hypertrophic And Left Partially Canal-Stenosing And Neural Element Impinging Neurocompressive Degenerative Lower Thoracic Spinal Facet Arthropathy (Osteoarthritis) 19) T10-T11 Lower Thoracic Spondylosis Associated With Clinical Features Beyond Radiculopathy Described Elsewhere In This Diagnosis List Including Contributing To Osseous Component Of Osseoligamentous Lateral Recess And Foraminal Spinal Stenosis At The Spondylosis Level 20) T10-T11 Right Neurocompressive Paracentral Canal Displacement Of Lower Thoracic Intervertebral Disc With Severe Canal Encroachment Associated With Clinical Features Beyond The Myelopathy And Radiculopathy Described Elsewhere In This Diagnosis List Including Exacerbating Soft Tissue Component Of Osseoligamentous Spinal Stenosis At The Herniation Level 21) T10-T11 Degeneration Of Lower Thoracic Intervertebral Disc With Clinical Features Beyond The Radiculopathy Described Elsewhere In This Diagnosis List Including Axial Thoracic Back Pain 22) Moderate Acute Lower Thoracic And Separate Moderate Longstanding Chronic Lumbar Region Lower Back Pain 23) Intermittently Severe Acute Lower Thoracic And Separate Longstanding Chronic Mild Lumbar Region Lower Back Muscular Spasm 24) T10-T11 Bilateral (Left Greater Than Right) (Mild Right And Moderate Left) Degenerative Lower Thoracic Spinal Facet Arthropathy (Osteoarthritis) 25) T10-T11 Bilateral Probable Multizone Circumferential Central Canal And Bilateral Recess Adherent, Tethering, Neurocompressive And Possibly Circumferentially Neuroconstricting Degenerative Lower Thoracic Epidural Fibrosis Secondary Perioperatively Relevant Diagnoses: 26) Significant Diffuse Multi-Regional Cervcial, Thoracic, Thoracolumbar, Lumbar And Lumbosacral Spinal Degenerative Arthritis (Spondylopathy) 27) Status Post L2-L5 Lumbar Surgical Instrumented Arthrodesis Procedure 28) Status Post L2-L5 Multiple Lumbar Decompressive Surgical Procedures Comorbid Diagnoses: 29) Moderate Obesity (Based On World Health Organization Body Mass Index Criteria With Patient BMI = 38.4) 30) Very High Body Mass Index (BMI = 38.4) Potentially Adversely Affecting Acute And Butcher Scullion Thoracic Spine General And Surgical Orthopaedic Treatment As Well As Spine Surgical And Overall Health Outcomes 31) Obstructive Sleep Apnea Post-Operative Diagnosis: Same as preoperative diagnosis list with the addition of standard postoperative symptomatic diagnoses. Epidural fibrosis as anticipated with adherence and tethering but no severe compression or constriction requiring separate and distinct neurolysis procedural service. Estimated Blood Loss: 500 cc estimated blood loss Surgeon/Religion Professor: JA JOHNSON MD - Primary Admitting Orthopaedic Surgeon Surgical Providers: Ja Johnson M.D. - Orthopaedic Spine Surgeon Carlotta Campa P.A.-C - Spark Plug Assembler Anesthesia: general endotracheal tube Monitors: Standard general anesthesia and other perioperative monitoring was performed per anesthesia. Refer to anesthesia monitoring records for details. IV Fluids: Standard anesthesia fluid management was performed without requirement for additional or emergent fluid resuscitation. Refer to anesthesia records for details. Implants: Implants Placed: None Graft Placed: Morselized Locally Harvested Autograft Autograft Locally Harvested From: T10 Complete And T11 Upper Spinous Process Resections And Laminectomies T10-T11 Right Subtotal And Left Partial Medial Facetectomies T10-T11 Partial Right Costotransversectomy Autograft Placed: T10-T11 Bilateral Intertransverse Space And Costotransversectomy Interval Urine Output: Refer to anesthesia records for details. Drains: Large bore subfascial JORGE drains x 1 to medium bulb reservoir suction ( fenestrated portions of drain tubes placed crossing between both posterolateral intertransverse spaces (lateral gutter) with solid (unfenestrated) portion passed through deep muscle, fascia, subcutaneous tissue, and skin of bilateral caudal aspect of surgical site johnson without suture fixation) Specimens: Removed extruded thoracic disk fragments sent to pathology for analysis per hospital protocol Complications: None Operative/Procedure Note Note: Preoperative Holding Area Assessment/Preparation: The patient was evaluated in the preoperative holding area prior to surgery and no clinical changes or contraindications to surgical intervention were documented compared to the preoperative office and clearance evaluations. His bilateral lower extremity moderate diffuse sensory, motor and coordination deficits were unchanged from clearance examinations including left greater than right sensory deficit from the pelvic rim down with dysesthesia in the plantar left foot, subjective bilateral give-way and objective motor deficit in the right extensor hallucis longus, anterior tibialis and iliopsoas, hyperreflexia and mild lower extremity spasticity as well as standing and ambulatory imbalance. As in the office, the patient was otherwise grossly neurovascularly intact in both upper and lower extremities to standard testing except as noted in preoperative office and admission records (see those documents for details regarding left shoulder, right hand, etc.). There were no new deficits or changes to suggest acute increase in neural element compression that might be associated with increased neurological intraoperative risk compared to that reviewed in detail during consent discussion based on preoperative assessment. The surgical plan and site were confirmed with the patient and preoperative paperwork was finalized. The region of the intended surgical site was cleansed, prepped and marked per protocol. The primary surgeon, anesthesia care team members and operating room staff confirmed the patient identity, surgical procedure, and operative site as well as other clinical details with the patient in an initial documented preoperative confirmation (awake time out) prior to the administration of sedation or anesthesia. Prior to receiving any preoperative medications, the patient confirmed his NPO status since midnight. Surgical Procedure: The procedure was performed by Dr. Johnson who was present and served as the primary surgeon for all critical intraoperative and perioperative decisions and interventions. The patient's body habitus and obesity (based on World Health Organization criteria with BMI = 38.4) with deep, tight and hypervascular paraspinal musculature increased the difficulty and risk of the procedure but did not specifically require additional procedural services in this case. The assistance of a specialty trained surgical physician accounting administrative assistant was critical for safe completion of all phases of the procedure, particularly for maintenance of clear visualization in the operative field and for neural element protection during discectomy. Carlotta Campa P.A.-C assisted in this capacity throughout each critical phase of the procedure. Set-Up/Positioning/Exposure - The patient was brought to the operating room in stable condition and underwent uncomplicated induction of general anesthesia, intubation, and placement of all appropriate monitors, lines and catheters without difficulty. Administration of 3 grams of IV Ancef based on patient body mass was given for surgical prophylaxis and was completed at least 30 and less than 60 minutes prior to making an incision. Given the significant preoperatively documented myelopathic symptoms and signs along with the radiologically documented stenosis and disk herniation associated with central canal spinal cord compression and cord signal change (likley acute on chronic myelomalacia) on MRI, steroids (Decadron 10 mg IV) were given for their theoretical spinal cord prophylactic neuroprotective effects as well as for nausea prophylaxis per anesthesia protocol. The patient was positioned prone on the Randell Table in standard fashion for a lower thoracic decompression and costovertebral discectomy taking care to protect and stabilize the spine during transfer, avoid positions of nerve stretch, pad all pressure points, and support the head without any pressure on the eyes using a foam head rest and head-holding frame. The arms were abducted less than 90 degrees at the shoulders, flexed less than 90 degrees at the elbows and supported on well-padded arm-boards with additional foam padding from the axillary regions to the hands with all pressure points either fully padded or supported without any contact at all between pads. The primary surgeon, anesthesia care team, and operating room staff again documented the patient identity, surgical procedure, and operative site as well as other clinical details in a final documented confirmation (final time out) prior to beginning the procedure. Loupe magnification was used throughout the appropriate portions of the procedure. After sterile prep and drape using standard technique with DuraPrep, an incision was mapped, infiltrated with 0.5% Marcaine local anesthetic with epinephrine, and made extending longitudinally from the superior tip of the T9 spinous process to the inferior tip of the T11 spinous process overlying the intended T10, T10-T11 And superior T11 operative laminar and interlaminar levels. Hemostasis was achieved using Bovie and Bipolar electrocautery beginning with the incision and continuing throughout the procedure with settings appropriate to each progressive level. The lumbosacral fascia was divided over the right side of the T10 and superior T11 spinous process tips as well as the bridging interspinous ligament segment using the Bovie electrocautery which was also used to maintain hemostasis throughout the exposure. Care was taken to preserve the interspinous ligament until the dissected level had been confirmed to be the intended operative level by radiographic localization. This initial dissection was carried down the right side of the middle and inferior T10 spinous process, the interspinous space and the superior margin of the T11 spinous process and then extended laterally to expose the corresponding laminae and interlaminar space at that level out to the medial edge of the right T10-T11 facet capsule and costotransverse junction which were initially preserved. The cerebellar retractor was placed to provide optimal retraction and visualization for sublaminar dissection and placement of level-localizing radiologic marker. The dissected interlaminar space was marked with a curved curette gently placed laterally under the inferior leading edge of the superior lamina and confirmed to be at the intended interspace on cross- table lateral fluoroscopic image. Intraoperative findings of multilevel lower thoracic moderate degenerative disk disease correlated well with the preoperative radiographic studies and no obvious interval change or additional abnormality was noted. The alignment of the spine on this intraoperative localization radiograph was noted to be normal and unchanged from preoperative office studies with no subluxation or instability evident. Once the appropriate level was fluoroscopically confirmed, dissection was continued bilaterally to fully expose the intended operative laminar and interlaminar levels (T10, T10-T11 and T11) out to the capsules of the facet joints and costovertebral complex on both sides which were initially preserved. Bovie and Bipolar electrocautery as well as a Malhotra elevator were then used to dissect over the facet joints, down the lateral margins of the facets (taking care to maintain hemostasis of the faceteal vessels where necessary) and over the dorsal surfaces of the T10 and T11 transverse processes out to the lateral level of the T10-T11 costotransverse complex. Once this confirmation of operative level and full dorsal exposure was completed the lateral gutters were thoroughly irrigated and packed bilaterally with counted moist sponges. Attention was then turned to the midline decompression. Hemilaminotomy/Discectomy/Decompression - The T10-T11 interspinous ligament was resected using a Leksell rongeur and the spinous process bone was cleaned of all soft tissue in situ prior to resection. The entire T10 and superior T11 spinous processes were then resected using the Leksell and this bone was morselized for later reimplantation as autograft. Midline complete T10 and upper T11 laminectomies were then performed beginning with cephalad piecemeal resection of the T10 laminar cortex using Kerrison rongeurs following dissection under the leading edge with a curved curette to free any underlying adhesions. Given the degree of spinal stenosis in this region, care was taken to minimize the extent of dissection into the canal to the minimal available size instruments which would allow safe resection until a majority of the circumferential compression had been relieved throughout the height of the stenosis (which extended through the disk space and faceteal height at the T10-T11 level). Once the inferior T10 laminectomy was complete and the ligamentous origin was reached at approximately the mid-vertical level of the lamina, the central ligamentum was also resected so as to further decompress the circumferential osseous-ligamentous stenosis and allow the thecal sac to expand dorsally into the decompressed space. Once the inferior T10 central decompression was complete at the interspace, the remaining central T10 laminectomy and bilateral facetectomies could be completed using standard technique and instrument sizes. Care was again taken to minimize direct contact with and manipulation of the thecal sac and neural elements during this process. Where possible the remaining unresected ligamentum flavum was left in place during the osseous decompression as a protective layer and then later removed to complete the lateral recess decompression where the ligament was a again causing a significant component of the compression (particularly on the left side in association with the impinging hypertrophic facet). Finally, a caudally directed dissection was performed to resect more than 50% of the superior T10 lamina so as to remove the portion of this level "shingling" into the canal and contributing to the canal stenosis as well as to allow complete bilateral decompression down below the inferior margins of the T10-T11 facets and to facilitate better ventral canal access from a costotransverse dissection on the right for discectomy while minimizing traction or manipulation of the neural elements. The severe stenosis in all canal zones at this level was associated with hyperemia of the thecal sac and nerve root meninges, inflammation and irritation consistent with the severity, chronicity and poor response to conservative measures of the patient's preoperative symptoms and deficits confirming the indications for surgery. All of these findings also suggested that improvement would have been unlikely with further conservative management and without surgical intervention. The above laminectomies and posterolateral canal osseous decompressions successfully relieved dorsal and dorsolateral pressure on the neural elements however ventral unidirectional compression was still evident from the underlying disk hernation which was felt to still be sufficiently compressive due to draping of the thecal sac over the ventral projection within the lower end of the thoracic kyphosis that separate costovertebral discectomy was indicated and in this case surgically necessary to optimize outcome. The right side of the canal wall and the entire facet on that side was further resected using Kerrison rongeurs. Complete unroofing foraminotomy was then performed followed by resection of the superficial dorsal aspect of the costotransverse complex to allow oblique access to the ventrolateral canal at the T10-T11 disk space level on the right just above the shoulder of the traversing nerve root at that level while minimizing the need for neural element contact, manipulation or retraction. A [place] 4 was used to dissect moderate adhesive epidural fibrotic tissue and untether the neural elements so that they could be gently and minimally retracted medially allowing access to the ventral canal at the disk space level. In this case dorsal, dorsolateral, lateral, ventrolateral and even some ventral canal epidural neurolysis was required to safely lyse adhesions and untether neural elements to allow safe, gentle and minimized mobilization of neural elements so as to safely and optimally access the ventrolateral canal for discectomy. The extent of compression and associated inflammatory response made this process considerably more complex than other similar laminectomy and costovertebral discectomy procedures however the time and skill level required, although much greater than average, was still felt to be within a reasonable range (within two standard deviations above the mean) for decompression and discectomy procedures of this type and so no additional distinct neurolysis procedural service was felt to be required. A moderate sized disk herniation was palpated and significant residual unidirectional compression was confirmed. This residual compression was felt to be sufficient to likely cause persistent injury to the neural elements even with the complete dorsal, dorsobilateral and bilateral recess osseous-ligamentous stenosis decompresssion already performed. A [place] 4 was used to dissect in the epidural plane and free tethering adhesions of the thecal sac to the disk herniation. Minimal medial retraction was performed only sufficient to access the fragment. Even as the dorsolateral hyperemia of the neural elements was improving following posterior element canal decompression, hyperemia of the right ventrolateral thecal sac overlying the disk herniation was still evident confirming the indications for separate costovertebral discectomy. With the ventrolateral canal exposed, the disk herniation was found to be contained beneath the posterior longitudinal ligament however there was a small paracentral opening in the ligamentum where the disk material was in direct contact with the thecal sac corresponding with the most prominent area of inflammation and hyperemia representing a component of chemical as well as mechanical neural element injury. This small opening was expanded into the subligamentous pocket using a [place] 4 followed by removal of an intermediate- sized and several smaller disk fragments using a micropituitary. The total disk material volume extruded into the canal and causing compression was approximately 10 mm x 5 mm x 3 mm which is quite large for this level particularly in the kyphotic region of the spine and when combined with a tightly stenotic canal. There was no evidence of loose fragments projecting from or within the disk space and so further discectomy was not felt to be necessary in this case as the additional risk of neural element manipulation ( particularly in the case of known preexisting myelomalacia at that level by MRI) was felt to outweigh both the potential benefit of more extensive discectomy and the potential risk of recurrent herniation. Following discectomy, the subligamentous pocket and ventral epidural space was gently palpated with no additional sequestered disk fragments, compressive osteophytes or soft tissues, adherent fibrosis or other abnormality found. The ventrolateral thecal sac hyperemia appeared to resolve rapidly once the ventral compression and inflammatory irritation of direct contact associated with the disk herniation fragment was removed. Hemostasis of osseous and epidural bleeding was achieved using Bipolar electrocautery and gentle packing of the epidural space with small volume of Thrombin soaked Gelfoam gently applied and compressed against the johnson of the canal with paddies taking care to avoid any compression to the neural elements during this process. Gelfoam was then removed by gentle irrigation with all bleeding controlled. Bleeding from the laminectomy edges was controlled with a small amount of bone wax applied using the back of a [place] with any residua removed. Final complete central and foraminal decompression was confirmed by gentle passage of a small blunt nerve hook in the epidural space and out the foramen on each side without resistance. Arthrodesis - Uninstrumented posterobilateral column arthrodesis was then performed at the T10-T11 level using standard technique. The retractors were removed and final mechanical manual pulse bulb irrigation was performed throughout the entire surgical site, including the deep spinal structures and the more superficial muscular and subcutaneous layers using 500 cc of Bacitracin irrigation. The retractors were replaced and the posterolateral spaces were additionally thoroughly bulb irrigated in preparation for arthrodesis. The Binpress Sánchez drill with a 5 mm cutting karin was used to decorticate the lateral facets and pars interarticularis regions taking care to avoid destabilizing any of these structures. The dorsal surfaces of the bilateral T10 and T11 transverse processes as well as the intervening costotransverse complexes were also decorticated using the drill. The cleaned and morselized local autograft bone which had been collected from the decompressive osseous resection described above was divided equally between the two sides and distributed evenly from T10 to T11 on both sides. This graft was then gently compressed in the intertransverse spaces against the decorticated lateral wall of the facets as well as the dorsal surfaces of the transverse processes and costotransverse complex taking care to avoid graft migration into the canal, decompressed and unroofed foramina or deep to the transverse process level. The implanted graft material completely filled the posterolateral spaces bilaterally providing excellent volume of fusion mass with no need for allograft augmentation in this case. Closure/Recovery - The graft was covered and the johnson and base of the surgical site were again thoroughly irrigated. Hemostasis was carefully achieved prior to closure. A piece of Thrombin-soaked Gelfoam was cut to match the size of the laminectomy defect and placed over the dorsal surface of the thecal sac and traversing nerve roots so as to minimize epidural fibrotic adhesions to the decompressed neural elements. A smaller piece was placed over the exiting nerve roots with the foraminotomy zones particularly on the right where a more extensive unroofing foraminotomy had been performed. A single large bore subfascial JORGE drain was placed with the fenestrated porrtion extending between the lateral intertransverse spaces and the solid portion carried out through the inferior wall of the right side of the surgical site through a smaall stab incision using an outside-in capture passage technique with a Tonsil clamp. During initial deep muscular closure one suture was placed deep to the portion of drain crossing the midline so as to prevent any migration into the laminectomy opening. Initial counts were correct prior to closure. The deep lumbar muscular layer was loosely reapproximated to the spinous process and interspinous tissues at the cephalad and caudal extents of the subfascial dissection and to opposing tissue in the middle of the surgical site where the posterior osseous elements had been resected. This deep closure was performed using #0 Vicryl interrupted suture technique so as to facilitating reattachment to the osseous structures where possible, promote deep soft tissue healing over the laminectomy site and minimize open subfascial space for hematoma collection. The fascial layer was reapproximated in the midline and secured to the spinous process tips and interspinous process ligament segments where possible using a [id number] closure technique so as to reestablish musculoskeletal mechanics as close to normal as possible using #0 Vicryl interrupted, [id number] suture technique. The deep suprafascial closure was performed with #2-0 Vicryl interrupted, simple suture technique. The superficial subcutaneous layer was closed with #3-0 undyed Vicryl inverted, interrupted, simple sutures. The skin was closed using sarwat with the edges everted. A standard, sterile dressing was placed consisting of Xeroform, folded fluff gauze 6x6s and ABD pads. This dressing was held in place using occlusive Coverall tape with good surgical site and drain site coverage. All counts were correct prior to removing the drapes. Recovery Room Assessment: The patient was transported to the recovery room in stable condition where gross neurological examination showed no worsening from his pre-operative deficits on initial recovery from anesthesia. The patient recovered generally from anesthesia (mental status, following commands, etc.) much more rapidly than his lower extremities which took quite some time to begin moving even when the patient was able to demonstrate full upper extremity function without deficit. After approximately 15 minutes he was then able to begin moving the lower extremities and this progressed rapidly until he could demonstrate at least his preoperative level of strength. This delay in recovery is consistent with the degree of compressive injury and myelomalacia seen in his lower spinal cord on preoperative MRI as well as the extent of bilateral lower extremity neurophysiological deficit and involvement documented prior to surgery. In fact , once fully recovered from anesthesia (including the lower body), the patient reported early subjective improvement in both his left distal lower extremity sensory and global right lower extremity motor function and this was confirmed by objective testing to be noticeably partially improved in the recovery room compared to preoperative assessment. His left foot dysesthesia was improved although his less bothersome preoperative hypoesthesia persisted. His left lower extremity remained strong (as it had been by examination preoperatively) but also remained difficult for him to coordinate (similar to preoperative evaluation) consistent with the severity of his myelopathic deficits and radiologic findings. The patient will follow the usual postoperative protocol for lower thoracic decompressive laminectomy and discectomy followed by uninstrumented fusion with some adjustments and accommodations made to the standard protocol because of the degree of preoperative neurological deficit (particularly balance abnormality and ambulatory difficulty), size of the patient's herniation fragment and preoperative disability status associated with other spinal and extremity arthritic and postoperative orthopaedic conditions. This postoperative care plan will include early hospital postoperative extremity and ambulatory mobilization followed by inpatient rehabilitation program taking care to minimize thoracolumbar motion initially so as to optimize fusion healing. He may require more comprehensive monitoring and prolonged hospitalization compared to other patient's following similar surgical intervention because of his significant preoperative deficits, other orthopaedic conditions limiting function and multiple medical comorbidities requiring specialized postoperative care per medical clearance evaluation recommendations. His need for any such increased or prolonged hospital postoperative care will be determined primarily by his ability to mobilize and ambulate. If he is able to do so rapidly and independently then he may meet criteria for home discharge in the usual timecourse for his procedure (despite the complexity of his underlying condition and comorbid health status). If he is unable to be reasonably independent with mobilization and short distance ambulation (which is much more likely given the seveity of his underlying neurological condition and preoperative functional deficits) then he will very appropriately require prolonged hospitalization and likely will ultimately require transfer to an inpatient rehabilitation facility for a comprehensive "myelopathy" or "spinal cord injury" rehabilitation program (probably lasting several weeks). Final determination of optimal post- hospitalization services will be determined following early inpatient hospital physical therapy and discharge planning assessments on postoperative days #1-2. 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 On initial postoperative assessment, he is actually reporting and demonstrating improvement and so if this continues the risk of postoperative steroid use may outweigh its benefit. If on the other hand he plateaus prematurely or worsens (suggesting reperfusion edema or other postoperative pheneomenon that might be minimized by steroids) then a postoperative steroid taper will be strongly considered as the potential benefits would likely outweigh the risks (related primarily to healing and infection). Given the uninstrumented nature of his lower thoracic autograft fusion procedure and his likely impaired osseous healing potential due to multiple medical conditions and potential need for steroid treatment for his myelopathy, a spinal fusion osteogenesis stimulator is indicated and will be ordered, applied and followed through the office. Discharge Disposition: PACU CC: Elizabeth SALES,Ja Ricketts; Carlotta Magana
[2017-12-15 21:48] VITALS: BP 140/80
[2017-12-16 05:59] VITALS: BP 140/72
[2017-12-16 09:07] LABS: ABSOLUTE BASOPHIL COUNT 0 /CUMM (0.0-0.2); ABSOLUTE EOSINOPHIL COUNT 0 /CUMM (0.0-0.7); ABSOLUTE GRANULOCYTE CT 10.1 /CUMM (1.4-6.5); ABSOLUTE MONOCYTE COUNT 0.5 /CUMM (0.10-0.60); BASOPHIL % 0 % (0.0-2.0); EOSINOPHIL % 0 % (0-5); MEAN CORPUSCULAR HGB 29.7 PG (27.0-31.0); MEAN CORPUSCULAR HGB CONC 33.2 G/DL (33.0-37.0); MEAN CORPUSCULAR VOLUME 89.3 FL (80.0-94.0); MEAN PLATELET VOLUME 8.5 FL (7.4-10.4); RBC DISTRIBUTION WIDTH 15.4 % (11.5-14.5); RED BLOOD CELL CT 3.81 /CUMM (4.70-6.10); WHITE BLOOD CELL COUNT 11.5 /CUMM (4.8-10.8)
[2017-12-16 10:14] LABS: GRANULOCYTE % 87.6 % (42.2-75.2); PLATELET COUNT 192 /CUMM (130-400)
--- NOTE | 2017-12-16 10:31 | PN- Medicine Consult ---
Reji SALES,[facility] 12/16/17 1031: Assessment/PlanMedical Consult Assessment/Plan Assessment: Mr. Naik is 62-year-old male with past medical history significant for hypertension, hyperlipidemia, DM HGA1C Jan 2018 7.5 on metformin anxiety, bipolar, depression, GERD, parathyrodectomy ? follow-up with Dr. rojo, hypothyrodism, extensive surgical history that includes 29 surgeries 8 of them for the back L3-S1 fusion presented to ED with chief complaint of severe lower back pain associated with weakness, numbness of lower extremity and bladder bowel incontinence. Problem list 1- Postop day 1 T10 to 11 laminectomy/in situ fusion 2- Diabetes 3- Chronic constipation on narcotics Plan -Consider starting Dulcolax or lactulose for bowel movement. Patient reported passing gas but no bowel movement since the surgery -Continue NovoLog sliding scale -Consider discontinuing Ativan as patient is on diazepam 5 mg 3 times a day for muscle spasm -PT -Pain control is per surgical team -Continue Toprol, Cozaar, Bumex, Flomax -Patient is on Decadron per surgical team DVT prophylaxis at all times - when able from the surgical perspective would initiate chemical prophylaxis for now ALPS Plan: As above Subjective Subjective: Patient was seen and examined this morning, vital signs are stable, sitting comfortably in chair, reported good control of his pain. Patient denied any incontinence. Didn't have any bowel movement since the surgery however passing gas. No abdominal pain, nausea or vomiting. Participated with PT this morning without issues. Review of Systems Constitutional: Reports: see HPI. Objective Last 24 Hrs of Vital Signs/I&O Vital Signs Date Time Temp Pulse Resp B/P B/P Pulse O2 O2 Flow FiO2 Mean Ox Delivery Rate 12/16 0913 Room Air Room Air 12/16 0818 97.6 60 140/72 12/16 0818 97.6 60 20 140/72 12/16 0818 97.6 60 20 140/72 12/16 0559 97.6 60 20 140/72 99 Room Air 12/16 0000 Room Air 12/15 2148 98.3 70 20 140/80 97 12/15 1343 97.6 77 17 146/90 95 Room Air Intake & Output 12/16 1600 12/16 0800 12/16 0000 Intake Total 930 Output Total 850 Balance -850 930 Intake, IV 130 Intake, Oral 800 Number 0 Bowel Movements Output, Urine 850 Physical Exam General Appearance: well developed/nourished, no apparent distress, alert, awake Head: atraumatic, normal appearance Ears, Nose, Throat: normal ENT inspection, hearing grossly normal Neck: normal inspection, supple, full range of motion Cardiovascular: regular rate/rhythm Respiratory: normal breath sounds, chest non-tender, no respiratory distress Abdomen: normal bowel sounds, soft, non-tender Back: normal inspection, surgical site dressed, no bleeding Extremities: normal inspection, normal capillary refill, normal range of motion, no edema Neurologic/Psychiatric: no motor/sensory deficits, awake, alert, oriented x 3 Current Medications: Current Medications Sig/Lillian Start time Last Medication Dose Route Stop Time Status Admin Acetaminophen 975 MG .STK-MED ONE 12/16 2143 DC PO 12/16 2144 Acetaminophen 975 MG .STK-MED ONE 12/16 1326 DC PO 12/16 1327 Acetaminophen 975 MG Q8 12/13 2200 AC 12/17 PO 0602 Bisacodyl 5 MG ONE ONE 12/16 2215 DC 12/16 PO 12/16 2216 2224 Bumetanide 1 MG DAILY 12/13 0900 AC 12/16 PO 0818 Desipramine HCl 100 MG BID 12/12 2100 AC 12/16 PO 2004 Dexamethasone 2 MG Q6 12/16 0600 DC 12/16 Sodium Chloride 50 ML IV 12/16 1229 1332 Diazepam 5 MG TID PRN 12/15 2145 AC 12/16 PO 2004 Docusate Sodium 100 MG BID 12/14 0900 AC 12/16 PO 2004 Insulin Human Regular 0 TIDAC 12/14 0800 AC 12/16 SC 1650 Levothyroxine Sodium 0.125 MG DAILY AC 12/13 0700 AC 12/17 PO 0601 [place] Carbonate 600 MG AT BEDTIME 12/12 2100 AC 12/16 PO 2005 Lorazepam 1 MG TID PRN 12/12 1245 AC 12/17 PO 0601 Losartan Potassium 50 MG DAILY 12/13 0900 AC 12/16 PO 0818 Metoprolol Succinate 200 MG DAILY 12/13 0900 AC 12/16 PO 0818 Omeprazole 40 MG DAILY AC 12/13 0700 AC 12/17 PO 0602 Ondansetron HCl 4 MG Q8P PRN 12/12 1245 AC IV Oxycodone HCl 5 MG Q4P PRN 12/13 1930 AC PO Oxycodone HCl 10 MG Q4 HRS NEEDED PRN 12/13 1930 AC 12/17 PO 0507 Patient Medication 1 ED ONE ONE 12/16 1430 DC 12/16 Teaching ED 12/16 1431 1643 Polyethylene Glycol 17 GM DAILY PRN 12/14 0145 AC 12/16 PO 1128 Senna/Docusate Sodium 1 TAB BID PRN 12/16 2215 AC 12/16 PO 2224 Tamsulosin HCl 0.4 MG DAILY 12/13 0900 AC 12/16 PO 0818 Trazodone HCl 300 MG AT BEDTIME NEED.. 12/12 1245 AC 12/16 PO 2228 Venlafaxine HCl 300 MG 0800 12/13 0800 AC 12/16 PO 0818 Results Last 24 Hrs Lab/Jose R Results: 111 Daija SALES,George 12/16/17 1827: Attending MD Review Statement Attending Sign Off Attending Cosign Statement: I have: examined this patient, reviewed al EMR data, discussd w/resident/PA/ STAIN MAKER, discussed mgmt plan w/pt, agreed w/resident/PA/STAIN MAKER, amended to note. Other Findings: The patient was seen and discussed with house staff. Agree with plan of care as above.
--- NOTE | 2017-12-16 13:25 | ULTRASOUND REPORT ---
EXAMINATION: US TRIPLEX OF LOWER EXTREMITIES, BILATERAL CLINICAL INFORMATION: Bilateral lower extremity edema and swelling COMPARISON: None TECHNIQUE: Color-flow triplex imaging with spectral analysis and compression Doppler were performed on the lower extremities. FINDINGS: Respiratory variation, normal compression and augmented flow are noted throughout the lower extremities. The visualized common femoral vein, superficial femoral vein, profunda femoral vein, popliteal vein and midcalf peroneal and posterior tibial venous segments show no evidence of deep venous thrombosis. There is no Serrano's cyst on the right but there is a 0.6 x 1.6 x 1.4 cm small Serrano's cyst on the left. IMPRESSION: No evidence of deep venous thrombosis involving the lower extremities.
[2017-12-16 13:48] VITALS: BP 120/70
[2017-12-16 22:07] VITALS: BP 140/74
[2017-12-17 06:20] VITALS: BP 146/80
--- NOTE | 2017-12-17 08:19 | PN- Medicine Consult ---
Reji SALES,[facility] 12/17/1718: Assessment/PlanMedical Consult Assessment/Plan Assessment: Mr. Naik is 62-year-old male with past medical history significant for hypertension, hyperlipidemia, DM HGA1C Jan 2018 7.5 on metformin anxiety, bipolar, depression, GERD, parathyrodectomy ? follow-up with Dr. rojo, hypothyrodism, extensive surgical history that includes 29 surgeries 8 of them for the back L3-S1 fusion presented to ED with chief complaint of severe lower back pain associated with weakness, numbness of lower extremity and bladder bowel incontinence. Problem list 1- Postop day 2 T10 to 11 laminectomy/in situ fusion 2- Diabetes 3- Chronic constipation on narcotics Plan -Dulcolax or lactulose for bowel movement. Patient reported passing gas but no bowel movement since the surgery -Continue NovoLog sliding scale -Consider discontinuing Ativan as patient is on diazepam 5 mg 3 times a day for muscle spasm -PT -Pain control is per surgical team -Continue Toprol, Cozaar, Bumex, Flomax -off Decadron DVT prophylaxis ALPS at all times Plan: As above Subjective Subjective: Patient was seen and examined this morning, vital signs are stable, no overnight events. He reported "funny sensation of his feet", motor and sensory exam is at baseline. Patient is sitting on the recliner the whole day long, sleeps on recliner feet down as he will start have muscle spasm when he lifts legs up. Discussed with the patient importance to ambulate around a lift the legs little bit up as it looked kind of congested. No bowel movement yet, however passing gas. No abdominal pain, nausea or vomiting. Review of Systems Constitutional: Reports: see HPI. Objective Last 24 Hrs of Vital Signs/I&O Vital Signs Date Time Temp Pulse Resp B/P B/P Pulse O2 O2 Flow FiO2 Mean Ox Delivery Rate 12/17 821 98.0 55 20 146/80 12/17 821 98.0 55 146/80 12/17 821 98.0 55 20 146/80 12/17 0620 98.0 55 20 146/80 96 Room Air 12/16 2207 98.1 58 20 140/74 97 Room Air 12/16 1348 97.9 75 18 120/70 97 Room Air Intake & Output 12/17 1600 12/17 0800 12/17 0000 Intake Total 60 480 Output Total 200 1475 250 Balance -200 -1415 230 Intake, Oral 60 480 Output, Urine 200 1475 250 Physical Exam General Appearance: well developed/nourished, no apparent distress, alert, awake Head: atraumatic, normal appearance Ears, Nose, Throat: normal pharynx, normal ENT inspection, hearing grossly normal Neck: normal inspection, supple, full range of motion Cardiovascular: regular rate/rhythm Respiratory: normal breath sounds, chest non-tender, no respiratory distress Abdomen: normal bowel sounds, soft, non-tender, distention Back: normal inspection, normal range of motion, surgical site dressed, no bleeding or discharge Extremities: normal inspection, normal capillary refill, normal range of motion, no edema, no calf tenderness Neurologic/Psychiatric: no motor/sensory deficits, awake, alert, oriented x 3 Current Medications: Current Medications Sig/Lillian Start time Last Medication Dose Route Stop Time Status Admin Acetaminophen 975 MG .STK-MED ONE 12/17 2116 DC PO 12/17 2117 Acetaminophen 975 MG .STK-MED ONE 12/17 2116 DC PO 12/17 2117 Acetaminophen 975 MG .STK-MED ONE 12/17 1412 DC PO 12/17 1413 Acetaminophen 975 MG Q8 12/130 AC 12/18 PO 0523 Bumetanide 1 MG DAILY 12/13 09 AC 12/17 PO 0823 Desipramine HCl 100 MG BID 12/12 2100 AC 12/17 PO 211 Diazepam 5 MG TID PRN 12/15 2145 DC 12/16 PO 2004 Docusate Sodium 100 MG BID 12/14 09 AC 12/17 PO 211 Insulin Human Regular 0 TIDAC 12/14 08 AC 12/17 SC 1657 Levothyroxine Sodium 0.125 MG DAILY AC 12/13 07 AC 12/18 PO 0523 [place] Carbonate 600 MG AT BEDTIME 12/12 2100 AC 12/17 PO 211 Lorazepam 1 MG TID PRN 12/12 1245 AC 12/17 PO 2310 Losartan Potassium 50 MG DAILY 12/13 09 AC 12/17 PO 08 Metoprolol Succinate 200 MG DAILY 12/13 09 AC 12/17 PO 08 Omeprazole 40 MG DAILY AC 12/13 07 AC 12/18 PO 0523 Ondansetron HCl 4 MG Q8P PRN 12/12 1245 AC IV Oxycodone HCl 5 MG Q4P PRN 12/13 1930 AC PO Oxycodone HCl 10 MG Q4 HRS NEEDED PRN 12/13 1930 AC 12/18 PO 0107 Patient Medication 1 ED ONE ONE 12/17 1815 DC 12/17 Teaching ED 12/17 181 2120 Polyethylene Glycol 17 GM DAILY PRN 12/14 0145 AC 12/17 PO 1129 Senna/Docusate Sodium 1 TAB BID PRN 12/16 2215 AC 12/16 PO 2224 Sodium Phosphate 1 UNIT ONCE ONE 12/17 1145 DC 12/17 [place] 12/17 1146 1610 Tamsulosin HCl 0.4 MG DAILY 12/13 0900 AC 12/17 PO 0822 Trazodone HCl 300 MG AT BEDTIME NEED.. 12/12 1245 AC 12/17 PO 2344 Venlafaxine HCl 300 MG 0800 12/13 0800 AC 12/17 PO 0823 Results Last 24 Hrs Lab/Jose R Results: 111 Daija SALES,George 12/17/173: Attending MD Review Statement Attending Sign Off Attending Cosign Statement: I have: examined this patient, reviewed aval EMR data, discussd w/resident/PA/ SALES REPRESENTATIVE SUPERVISOR, discussed mgmt plan w/pt, agreed w/resident/PA/SALES REPRESENTATIVE SUPERVISOR. Other Findings: The patient was seen and discussed with resident. Agree with summary as above. Awaiting STR.
[2017-12-17 09:04] LABS: ABSOLUTE BASOPHIL COUNT 0 /CUMM (0.0-0.2); ABSOLUTE EOSINOPHIL COUNT 0 /CUMM (0.0-0.7); ABSOLUTE GRANULOCYTE CT 7.7 /CUMM (1.4-6.5); ABSOLUTE MONOCYTE COUNT 0.7 /CUMM (0.10-0.60); BASOPHIL % 0.2 % (0.0-2.0); EOSINOPHIL % 0.1 % (0-5); GRANULOCYTE % 74.2 % (42.2-75.2); HEMATOCRIT 34.8 % (42-52); MEAN CORPUSCULAR HGB 29.2 PG (27.0-31.0); MEAN CORPUSCULAR VOLUME 88.7 FL (80.0-94.0); MEAN PLATELET VOLUME 8.4 FL (7.4-10.4); PLATELET COUNT 198 /CUMM (130-400); RBC DISTRIBUTION WIDTH 15.7 % (11.5-14.5); RED BLOOD CELL CT 3.93 /CUMM (4.70-6.10); WHITE BLOOD CELL COUNT 10.4 /CUMM (4.8-10.8)
--- NOTE | 2017-12-17 11:15 | PN- Orthopedic ---
Subjective Subjective: Patient reports numbness on the bottom aspect of his left foot and associated pressing sensation. C/o muscle spasms in left thigh. He denies any other numbness or parathesias. He has been ambulating with PT. He states he has not had a BM yet. Objective Vital Signs and I&Os Vital Signs Date Time Temp Pulse Resp B/P B/P Pulse O2 O2 Flow FiO2 Mean Ox Delivery Rate 12/17 821 98.0 55 20 146/80 12/17 08 98.0 55 146/80 12/17 821 98.0 55 20 146/80 12/17 0620 98.0 55 20 146/80 96 Room Air 12/16 2207 98.1 58 20 140/74 97 Room Air 12/16 1348 97.9 75 18 120/70 97 Room Air Intake & Output 12/17 1600 12/17 0800 12/17 0000 12/16 1600 12/16 0812/16 0000 Intake Total 60 480 930 Output Total 800 1475 250 600 850 Balance -800 -1415 230 -600 -850 930 Intake, IV 130 Intake, Oral 60 480 800 Number 0 Bowel Movements Output, Urine 800 1475 250 600 850 Patient 250 lb Weight Physical Exam: Gen - resting comfortably in a chair in nad Cardiac - S1S2 noted Lungs - CTAB Ext - motor 4/5 LLE, sensory intact, numbness of left foot, plantar aspect, no edema or calf tenderness B/L Back - midline incision closed with sarwat, with no signs of infection, dressing changed Current Medications: Current Medications Sig/Lillian Start time Last Medication Dose Route Stop Time Status Admin Acetaminophen 975 MG .STK-MED ONE 12/16 2142 DC PO 12/17 2143 Acetaminophen 975 MG .STK-MED ONE 12/16 1326 DC PO 12/16 1327 Acetaminophen 975 MG Q8 12/13 220 AC 12/17 PO 0602 Bisacodyl 5 MG ONE ONE 12/16 221 DC 12/16 PO 12/16 221 222 Bumetanide 1 MG DAILY 12/13 0900 AC 12/17 PO 0823 Desipramine HCl 100 MG BID 12/12 2100 AC 12/17 PO 0823 Dexamethasone 2 MG Q6 12/16 06 DC 12/16 Sodium Chloride 50 ML IV 12/16 1229 1332 Diazepam 5 MG TID PRN 12/15 2144 AC 12/16 PO 2005 Docusate Sodium 100 MG BID 12/14 09 AC 12/17 PO 0822 Insulin Human Regular 0 TIDAC 12/14 08 AC 12/17 SC 0824 Levothyroxine Sodium 0.125 MG DAILY AC 12/13 07 AC 12/17 PO 0601 [place] Carbonate 600 MG AT BEDTIME 12/12 2100 AC 12/16 PO 2005 Lorazepam 1 MG TID PRN 12/12 1245 AC 12/17 PO 0601 Losartan Potassium 50 MG DAILY 12/13 09 AC 12/17 PO 0822 Metoprolol Succinate 200 MG DAILY 12/13 09 AC 12/17 PO 0822 Omeprazole 40 MG DAILY AC 12/13 07 AC 12/17 PO 0602 Ondansetron HCl 4 MG Q8P PRN 12/12 1245 IV Oxycodone HCl 5 MG Q4P PRN 12/13 1930 AC PO Oxycodone HCl 10 MG Q4 HRS NEEDED PRN 12/13 1930 AC 12/17 PO 1129 Patient Medication 1 ED ONE ONE 12/16 1430 OH 12/16 Teaching ED 12/16 1431 1643 Polyethylene Glycol 17 GM DAILY PRN 12/14 0145 12/17 PO 1129 Senna/Docusate Sodium 1 TAB BID PRN 12/16 2215 AC 12/16 PO 2224 Sodium Phosphate 1 UNIT ONCE ONE 12/17 1145 AC TN 12/17 1146 Tamsulosin HCl 0.4 MG DAILY 12/13 09 AC 12/17 PO 0822 Trazodone HCl 300 MG AT BEDTIME NEED.. 12/12 1245 AC 12/16 PO 2228 Venlafaxine HCl 300 MG 12/13 08 AC 12/17 PO 0823 Results Last 48 Hours of Labs: Laboratory Tests 12/17 12/16 0615 0730 Chemistry Sodium (137 - 145 mmol/L) 141 143 Potassium (3.5 - 5.1 mmol/L) 3.9 4.3 Chloride (98 - 107 mmol/L) 99 101 Carbon Dioxide (22 - 30 mmol/L) 30 32 H Anion Gap (5 - 16) 12 10 BUN (9 - 20 mg/dL) 28 H 25 H Creatinine (0.7 - 1.2 mg/dL) 0.8 0.8 Estimated GFR (>60 ml/min) > 60 > 60 BUN/Creatinine Ratio (7 - 25 %) 35.0 H 31.3 H Hematology CBC w Diff NO MAN DIFF REQ NO MAN DIFF REQ WBC (4.8 - 10.8 /CUMM) 10.4 11.5 H RBC (4.70 - 6.10 /CUMM) 3.93 L 3.81 L Hgb (14.0 - 18.0 G/DL) 11.5 L 11.3 L Hct (42 - 52 %) 34.8 L 34.0 L MCV (80.0 - 94.0 FL) 88.7 89.3 MCH (27.0 - 31.0 PG) 29.2 29.7 MCHC (33.0 - 37.0 G/DL) 33.0 33.2 RDW (11.5 - 14.5 %) 15.7 H 15.4 H Plt Count (130 - 400 /CUMM) 198 192 MPV (7.4 - 10.4 FL) 8.4 8.5 Gran % (42.2 - 75.2 %) 74.2 87.6 H Lymphocytes % (20.5 - 51.1 %) 19.3 L 8.4 L Monocytes % (1.7 - 9.3 %) 6.2 4.0 Eosinophils % (0 - 5 %) 0.1 0 Basophils % (0.0 - 2.0 %) 0.2 0 Absolute Granulocytes (1.4 - 6.5 /CUMM) 7.7 H 10.1 H Absolute Lymphocytes (1.2 - 3.4 /CUMM) 2.0 1.0 L Absolute Monocytes (0.10 - 0.60 /CUMM) 0.7 H 0.5 Absolute Eosinophils (0.0 - 0.7 /CUMM) 0 0 Absolute Basophils (0.0 - 0.2 /CUMM) 0 0 Assessment/Plan Assessment/Plan 62 M w/ h/o HTN, HLD, DM, anxiety, bipolar, depression, GERD, and extensive surgical history including multiple spinal surgeries who POD 5 s/p T10-T11 laminectomy and diskectomy with lower extremity myelopathy, improving Cont ada diet Pain regimen prn Valium for muscle spasms prn ISS on board Home meds on board Bowel regimen, add fleet enema DVT ppx - alps, oob w/ assistance/PT D/c planning to STR Core Measures Venous Thromboembolism VTE Risk Factors Surgery No Mechanical VTE Prophylaxis d/t N/A MechProphylax Ordered No VTE Pharm Prophylaxis d/t Surgical Contraindication
[2017-12-17] MEDS ORDERED: VALIUM5 M2 PO (12:11)
[2017-12-17] MEDS ORDERED: ROXICODONE5 M1 PO (12:11)
[2017-12-17 13:32] VITALS: BP 130/80
--- NOTE | 2017-12-17 15:23 | Surgical Discharge Summary ---
Visit Information Visit Dates Admission Date: 12/12/17 History of Present Illness Chief Complaint: Progressive weakness and has noticed some stress fecal incontinence. Medical History Blood Transfusion Hx: Yes Neurological: NONE EENT: NONE Cardiovascular: hypertension, hyperlipidemia Respiratory: obstructive sleep apnea Gastrointestinal: GERD Hepatic: NONE Renal: NONE Musculoskeletal: MULTIPLE BACK SX RT HIP REPLACEMENT RT KNEE REPLACEMENT LT SHOULDER SX BILAT CARPAL TUNNEL SX Psychiatric: anxiety, depression, insomnia Endocrine: hypothyroidism Blood Disorders: NONE Cancer(s): PROSTATE CANCER History of MRSA: No History of VRE: No History of CDIFF: No Isolation History: Standard Tetanus Vaccine: 04/22/16 Surgical History Pertinent Surgical History: R TOTAL HIP T TOTAL KNEE L SHOULDER ROTATOR CUFF PARATHYROIDECTOMY LUMBAR FUSION left reverse shoulder knee arthroscopies CARPAL TUNNEL R ANKLE Psychosocial History Where Do You Live? Home Who Do You Live With? Significant Other Services at Home: None What is Your Primary Language? Ukrainian ETOH Use: occasional use Hospital Course Course Attending Physician: Elizabeth SALES,Arnold Ricketts Primary Care Physician: Diamond Riley APRN Hospital Course: This is a 62 year-old male who was sent to the emergency from Dr. Cardona office with mid cervical spinal stenosis and T10-11 disc herniation. While in the office his legs buckled under him and he nearly fell. He reported having progressive weakness and has noticed some stress fecal incontinence. Due to his worsening balance and gait abnormality, Dr. Johnson admitted the patient to his service for urgent surgical intervention. Medicine and cardiology were consulted for surgical clearance. On 12/13/17 he underwent a T10-T11 laminectomy and diskectomy. Please refer to Dr. Johnson op note for further details. Hospital course was complicated by bilateral lower extremity myelopathy, which improved with decadron taper. He was evaluated and treated by PT/OT, who recommended STR. He is medically stable for discharge at this time. Complications: Bilateral lower extremity myelopathy Allergies: Coded Allergies: furosemide (Severe, ANAPHYLAXIS 07/22/16) amlodipine (UNKNOWN 07/22/16) Disposition Summary Disposition Principal Diagnosis: T10-11 disc herniation Additional Diagnosis: S/p T10-T11 laminectomy and diskectomy Bilateral lower extremity myelopathy Discharge Disposition: SNF Discharge Instructions General Discharge Information Code Status: Full Code Patient's Diet: Diabetic diet Patient's Activity: WBAT with rolling walker prn Follow-Up Instructions/Appts: 1-[address] Johnson Medications at Discharge Discharge Medications: Stop taking the following medications: Aspirin (Aspirin*) 325 MG TABLET ORAL TWICE DAILY Qty = 60 Continue taking these medications: Venlafaxine HCl (Venlafaxine HCl ER) 150 MG CAP.ER.24H 2 Capsule ORAL DAILY Comments: Last Taken: 12/18/17 Time: 8 AM Cyanocobalamin (Vitamin B-12) (Cyanocobalamin Injection) 1,000 MCG/ML VIAL 1 Milliliters INTRAMUSC ONCE A MONTH Comments: NOT GIVEN IN THE HOSPITAL Ergocalciferol (Vitamin D2) (Vitamin D2) 50,000 UNIT CAPSULE 1 Capsule ORAL [id number] Comments: NOT GIVEN IN THE HOSPITAL Lorazepam (Ativan) 2 MG TABLET 0.5 Tablet ORAL THREE TIMES DAILY Comments: Last Taken: 12/17/17 Time: 11 PM Levothyroxine Sodium (Levothyroxine Sodium) 125 MCG TABLET 1 Tablet ORAL DAILY Comments: Last Taken: 12/18/17 Time: 05:23 AM Desipramine HCl (Desipramine HCl) 100 MG TABLET 1 Tablet ORAL TWICE DAILY Qty = 180 Comments: NOT GIVEN IN HOSPITAL [place] Carbonate ([place] Carbonate) 300 MG TABLET 2 Tablet ORAL TAKE AT BEDTIME Qty = 180 Comments: Last Taken: 12/18/17 Time: 915 PM Tamsulosin HCl (Flomax) 0.4 MG CAP.ER.24H 1 Capsule ORAL DAILY Comments: Last Taken: 12/18/17 Time: 8 AM Trazodone HCl (Trazodone HCl) 300 MG TABLET 1 Tablet ORAL Every night as needed for SLEEP Comments: Last Taken: 12/17/17 Time: 1145 PM Irbesartan (Avapro) 300 MG TABLET 1 Tablet ORAL DAILY Comments: NOT GIVEN IN THE HOSPITAL Bumetanide (Bumetanide) 1 MG TABLET 1 Tablet ORAL DAILY Comments: Last Taken: 12/18/17 Time: 08:04 Omeprazole (Omeprazole) 40 MG CAPSULE.DR 1 Capsule ORAL DAILY Comments: Last Taken: 12/18/17 Time: 530 AM Metoprolol Succinate (Metoprolol Succinate) 200 MG TAB.ER.24H 1 Tablet ORAL DAILY Qty = 30 Comments: Last Taken: 12/18/17 Time: 8 AM Metformin HCl (Metformin HCl) 500 MG TABLET 1 Tablet ORAL TWICE DAILY Comments: NOT GIVEN IN THE HOSPITAL Mirabegron (Myrbetriq) 50 MG TAB.ER.24H 25 Milligram ORAL DAILY Comments: NOT GIVEN IN THE HOSPITAL Start taking the following new medications: Oxycodone HCl (Roxicodone) 5 MG TABLET 1-2 Tablet ORAL EVERY 4-6 HOURS NEEDED as needed for PAIN Qty = 30 No Refills Comments: 10 MG GIVEN 12/18/17 @ 1:00 PM
--- NOTE | 2017-12-17 15:29 | Patient Discharge Instructions ---
Discharge Instructions General Discharge Information You were seen/treated for: T10-T11 herniation You had these procedures: T10-T11 laminectomy and discectomy Watch for these problems: Increased pain, fecal/urinary incontience, fever, redness, swelling, drainage from your incision Call Surgeon to remove: [place] No bath, but you may shower: Yes Other wound care: Keep incision clean and dry Change dressing daily as needed Diet Continue normal diet: Yes Recommended Diet: Diabetic Activity Full Activity/No Limits: No Activity Self Limited: Yes Pounds, do NOT lift more than: 10 (x 4 weeks) Activity Limited to: Weight bear as tolerated Other activity limits: Use rolling walker as needed Acute Coronary Syndrome Inclusion Criteria At DC or during hospital stay patient has or had the following: ACS DIAGNOSIS No Discharge Core Measures Meds if any: Prescribed or Continued at Discharge Meds if any: NOT Prescribed or Continued at Discharge Congestive Heart Failure Inclusion Criteria At DC or during hospital stay patient has or had the following: CHF DIAGNOSIS No Discharge Core Measures Meds if any: Prescribed or Continued at Discharge Meds if any: NOT Prescribed or Continued at Discharge Cerebrovascular accident Inclusion Criteria At DC or during hospital stay patient has or had the following: CVA/TIA Diagnosis No Discharge Core Measures Meds if any: Prescribed or Continued at Discharge Meds if any: NOT Prescribed or Continued at Discharge Venous thromboembolism Inclusion Criteria VTE Diagnosis No VTE Type NONE VTE Confirmed by (Test) NONE Discharge Core Measures - Per Current guidelines, there needs to be overlap - treatment for the first 5 days of Warfarin therapy. - If discharged on Warfarin prior to 5 days of - overlap therapy, the patient will need to be - assessed for post discharge needs including - *Post discharge parental anticoagulation - *Warfarin and/or parental anticoagulation education - *Follow up date to check INR post discharge At least 5 days overlap therapy as Inpatient No Meds if any: Prescribed or Continued at Discharge Note: Overlap Therapy is Warfarin and Anticoagulant Meds if any: NOT Prescribed or Continued at Discharge
[2017-12-17 22:19] VITALS: BP 150/86
[2017-12-18 06:20] VITALS: BP 152/90
--- NOTE | 2017-12-18 07:42 | PN- Orthopedic ---
See Addendum Subjective Subjective: 62-year-old male status post T10 to T 11 laminectomy and decompression with in situ fusion is postop day 7. He had a bowel movement today and his pain is controlled he still has numbness of the left foot that is intermittent and generalized weakness of the left leg. No fevers or chills and feels well overall Objective Vital Signs and I&Os Vital Signs Date Time Temp Pulse Resp B/P B/P Pulse O2 O2 Flow FiO2 Mean Ox Delivery Rate 12/19 619 97.9 67 18 152/90 99 Room Air 12/17 2219 98.7 60 20 150/86 99 12/17 1332 98.4 65 18 130/80 99 Room Air 12/17 0822 98.0 55 20 146/80 12/17 0822 98.0 55 146/80 12/17 0822 98.0 55 20 146/80 Intake & Output 12/18 0800 12/18 0000 12/17 1600 12/17 0800 12/17 0000 12/16 1600 Intake Total 480 480 240 60 480 Output Total 1000 2200 1475 250 600 Balance -520 480 -1960 -1415 230 -600 Intake, Oral 480 480 240 60 480 Number 2 1 Bowel Movements Output, Urine 1000 2200 1475 250 600 Patient 250 lb Weight On physical examination patient is alert and oriented sitting in a chair eating breakfast. Chest is clear auscultation symmetric without rales rhonchi or wheeze Heart is regular rhythm without murmurs rubs gallops Abdomen is rounded and obese nontender to palpation, not distended. Per patient this is his normal abdomen Thoracic wound dressings are changed the wound is clean dry and intact without erythema or drainage dressings have been applied. Semination of his lower extremities reveals the left hip flexors are weak at 3/5 All other muscle groups are 4/5 Sensory loss noted along L5 dermatome, especially the foot Right lower extremity is 5/5 in all motor groups and sensory is intact Assessment/Plan Assessment/Plan 62 M w/ h/o HTN, HLD, DM, anxiety, bipolar, depression, GERD, and extensive surgical history including multiple spinal surgeries who POD 7 s/p T10-T11 laminectomy and discectomy with lower extremity myelopathy, improving Cont ada diet Pain regimen prn Valium for muscle spasms prn ISS on board Home meds on board Bowel regimen, add fleet enema DVT ppx - alps, oob w/ assistance/PT D/c planning to STR Core Measures Venous Thromboembolism VTE Risk Factors Surgery No Mechanical VTE Prophylaxis d/t N/A MechProphylax Ordered No VTE Pharm Prophylaxis d/t Surgical Contraindication
--- NOTE | 2017-12-18 07:44 | PN- Medicine Consult ---
Reji SALES,[facility] 12/18/17 0744: Assessment/PlanMedical Consult Assessment/Plan Assessment: Mr. Naik is 62-year-old male with past medical history significant for hypertension, hyperlipidemia, DM HGA1C Jan 2018 7.5 on metformin anxiety, bipolar, depression, GERD, parathyrodectomy ? follow-up with Dr. rojo, hypothyrodism, extensive surgical history that includes 29 surgeries 8 of them for the back L3-S1 fusion presented to ED with chief complaint of severe lower back pain associated with weakness, numbness of lower extremity and bladder bowel incontinence. Problem list 1- pod#3 T10 to 11 laminectomy/in situ fusion 2- Diabetes 3- Chronic constipation on narcotics Plan -Patient is ready for discharge today to STR -To follow up with surgery after discharge -Continue home medication -Pain managment per surgery DVT prophylaxis ALPS at all times Plan: As above Subjective Subjective: Patient was seen and examined this morning. Pain controlled, no incotinence, reported weakness of left LE same as before surgery. Vitals stable. Had BM. Discharge to STR today. Review of Systems Constitutional: Reports: see HPI. Objective Last 24 Hrs of Vital Signs/I&O Vital Signs Date Time Temp Pulse Resp B/P B/P Pulse O2 O2 Flow FiO2 Mean Ox Delivery Rate 12/18 0806 78 138/86 12/18 0804 78 138/86 05 0804 78 138/86 12/18 0620 97.9 67 18 152/90 99 Room Air 12/17 2219 98.7 60 20 150/86 99 12/17 1332 98.4 65 18 130/80 99 Room Air Intake & Output 12/18 1600 12/18 0800 12/18 0000 Intake Total 480 480 Output Total 1000 Balance -520 480 Intake, Oral 480 480 Number 2 1 Bowel Movements Output, Urine 1000 Physical Exam General Appearance: well developed/nourished, no apparent distress, alert, awake Head: atraumatic, normal appearance Ears, Nose, Throat: normal pharynx, normal ENT inspection, hearing grossly normal Neck: normal inspection, supple, full range of motion Cardiovascular: regular rate/rhythm Respiratory: normal breath sounds, chest non-tender, no respiratory distress Abdomen: normal bowel sounds, soft Back: normal inspection, normal range of motion, clean surgical wound Extremities: normal inspection, normal capillary refill, normal range of motion, bilateral trace pedal edema Neurologic/Psychiatric: no motor/sensory deficits, awake, alert, oriented x 3 Current Medications: Current Medications Sig/Lillian Start time Last Medication Dose Route Stop Time Status Admin Acetaminophen 975 MG .STK-MED ONE 12/17 2116 DC PO 12/17 2117 Acetaminophen 975 MG .STK-MED ONE 12/17 2116 DC PO 12/17 211 Acetaminophen 975 MG .STK-MED ONE 12/17 1412 DC PO 12/17 1413 Acetaminophen 975 MG Q8 12/13 2200 AC 12/18 PO 0523 Bumetanide 1 MG DAILY 12/13 09 AC 12/18 PO 0804 Desipramine HCl 100 MG BID 12/12 2100 AC 12/18 PO 0805 Diazepam 5 MG TID PRN 12/15 2145 DC 12/16 PO 2005 Docusate Sodium 100 MG BID 12/14 09 AC 12/18 PO 0804 Insulin Human Regular 0 TIDAC 12/14 0800 AC 12/18 SC 0803 Levothyroxine Sodium 0.125 MG DAILY AC 12/13 0700 AC 12/18 PO 0523 [place] Carbonate 600 MG AT BEDTIME 12/12 2100 AC 12/17 PO 2118 Lorazepam 1 MG TID PRN 12/12 1245 AC 12/17 PO 2310 Losartan Potassium 50 MG DAILY 12/13 09 AC 12/18 PO 0806 Metoprolol Succinate 200 MG DAILY 12/13 0900 AC 12/18 PO 0804 Omeprazole 40 MG DAILY AC 12/13 0700 AC 12/18 PO 0523 Ondansetron HCl 4 MG Q8P PRN 12/12 1245 AC IV Oxycodone HCl 5 MG Q4P PRN 12/13 1930 AC PO Oxycodone HCl 10 MG Q4 HRS NEEDED PRN 12/13 1930 AC 12/18 PO 0813 Patient Medication 1 ED ONE ONE 12/17 181 DC 12/17 Teaching ED 12/17 181 2120 Polyethylene Glycol 17 GM DAILY PRN 12/14 0145 AC 12/17 PO 1129 Senna/Docusate Sodium 1 TAB BID PRN 12/16 2215 12/16 PO 2224 Sodium Phosphate 1 UNIT ONCE ONE 12/17 1145 DC 12/17 MD 12/17 1146 1610 Tamsulosin HCl 0.4 MG DAILY 04/27 0900 AC 12/18 PO 0804 Trazodone HCl 300 MG AT BEDTIME NEED.. 12/12 1245 AC 12/17 PO 2344 Venlafaxine HCl 300 MG 0800 12/13 0800 AC 12/18 PO 0805 Results Last 24 Hrs Lab/Jose R Results: 111 Daija SALES,George 12/18/17 1411: Attending MD Review Statement Attending Sign Off Attending Cosign Statement: I have: examined this patient, reviewed [employer] EMR data, discussd w/resident/PA/ [employer], discussed mgmt plan w/pt, agreed w/resident/PA/[employer], amended to note. Other Findings: The patient was seen and discussed with house staff. Agree with the plan of care as above.
--- NOTE | 2017-12-18 07:53 | Surgical Discharge Summary ---
Visit Information Visit Dates Admission Date: 12/12/17 Discharge Date: 12/18/2017 History of Present Illness Chief Complaint: back pain with lower extremity weakness, fecal incontinence Medical History Blood Transfusion Hx: Yes Neurological: NONE EENT: NONE Cardiovascular: hypertension, hyperlipidemia Respiratory: obstructive sleep apnea Gastrointestinal: GERD Hepatic: NONE Renal: NONE Musculoskeletal: MULTIPLE BACK SX RT HIP REPLACEMENT RT KNEE REPLACEMENT LT SHOULDER SX BILAT CARPAL TUNNEL SX Psychiatric: anxiety, depression, insomnia Endocrine: hypothyroidism Blood Disorders: NONE Cancer(s): PROSTATE CANCER History of MRSA: No History of VRE: No History of CDIFF: No Isolation History: Standard Tetanus Vaccine: 04/22/16 Surgical History Pertinent Surgical History: R TOTAL HIP T TOTAL KNEE L SHOULDER ROTATOR CUFF PARATHYROIDECTOMY LUMBAR FUSION left reverse shoulder knee arthroscopies CARPAL TUNNEL R ANKLE Psychosocial History Where Do You Live? Home Who Do You Live With? Significant Other Services at Home: None What is Your Primary Language? Setswana ETOH Use: occasional use Review of Systems: SEE H&P Hospital Course Course Attending Physician: Elizabeth SALES,Arnold Ricketts Primary Care Physician: Diamond Riley APRN Hospital Course: 62 M w/ h/o HTN, HLD, DM, anxiety, bipolar, depression, GERD, and extensive surgical history including multiple spinal surgeries was admitted to [facility] on 12/12 and underwent a T10/11 laminectomy decompression and in situ fusion. He tolerated the procedure well and was then transferred to the floor for postoperative care. While on the floor he received pain medication which controlled his symptoms. He was seen by physical therapy for gait training as he had profound weakness of the left lower extremity. Throughout his hospital stay his vital signs have remained stable and he is afebrile. On physical examination today his lumbar wound is clean dry and intact without erythema or drainage a new dressing has been applied. He is no longer incontinent and had a bowel movement this morning without incident. He is able to urinate without any difficulty. On physical examination it is noted there is hip flexor weakness 3/ 5. Remainder of the left lower extremity musculature is 4/5. On the right lower extremity he has 5/5 in all muscle groups. To note he still has some sensory loss along the L5 dermatome specifically the base of the left foot. He is discharged to extended care rehabilitation for continuation of physical therapy and occupational therapy forcing return home. He will need interventions by physical therapy and occupational therapy as he is full weightbearing to work on his gait. He will need nursing care for daily dressing changes please call the office for a follow-up appointment in approximately 1 week for staple removal Complications: None Allergies: Coded Allergies: furosemide (Severe, ANAPHYLAXIS 07/22/16) amlodipine (UNKNOWN 07/22/16) Disposition Summary Disposition Principal Diagnosis: T10-T11 senosis, HNP, bilateral lower extremity radiculpathy and myelopathy Additional Diagnosis: none Discharge Disposition: SNF Discharge Instructions General Discharge Information Code Status: Full Code Patient's Diet: diabetic diet Patient's Activity: ad karon with assitance of rolling walker Follow-Up Instructions/Appts: call office for appointment in [address] Johnson for staple remova; l Medications at Discharge Discharge Medications: Stop taking the following medications: Aspirin (Aspirin*) 325 MG TABLET ORAL TWICE DAILY Qty = 60 Continue taking these medications: Venlafaxine HCl (Venlafaxine HCl ER) 150 MG CAP.ER.24H 2 Capsule ORAL DAILY Cyanocobalamin (Vitamin B-12) (Cyanocobalamin Injection) 1,000 MCG/ML VIAL 1 Milliliters INTRAMUSC ONCE A MONTH Ergocalciferol (Vitamin D2) (Vitamin D2) 50,000 UNIT CAPSULE 1 Capsule ORAL [id number] Lorazepam (Ativan) 2 MG TABLET 0.5 Tablet ORAL THREE TIMES DAILY Comments: Last Taken: 04/04/17 Time: 1000AM Levothyroxine Sodium (Levothyroxine Sodium) 125 MCG TABLET 1 Tablet ORAL DAILY Desipramine HCl (Desipramine HCl) 100 MG TABLET 1 Tablet ORAL TWICE DAILY Qty = 180 Comments: NOT GIVEN IN HOSPITAL [place] Carbonate ([place] Carbonate) 300 MG TABLET 2 Tablet ORAL TAKE AT BEDTIME Qty = 180 Comments: Last Taken: 04/03/17 Time: 2200PM Tamsulosin HCl (Flomax) 0.4 MG CAP.ER.24H 1 Capsule ORAL DAILY Comments: Last Taken: 04/04/17 Time: 1000AM Trazodone HCl (Trazodone HCl) 300 MG TABLET 1 Tablet ORAL Every night as needed for SLEEP Comments: Last Taken: 04/03/17 Time: 2200PM Irbesartan (Avapro) 300 MG TABLET 1 Tablet ORAL DAILY Comments: Last Taken: 04/04/17 Time: 0600AM Bumetanide (Bumetanide) 1 MG TABLET 1 Tablet ORAL DAILY Comments: Last Taken: 04/04/17 Time: 1000AM Omeprazole (Omeprazole) 40 MG CAPSULE.DR 1 Capsule ORAL DAILY Comments: Last Taken: 04/04/17 Time: 1000AM Metoprolol Succinate (Metoprolol Succinate) 200 MG TAB.ER.24H 1 Tablet ORAL DAILY Qty = 30 Metformin HCl (Metformin HCl) 500 MG TABLET 1 Tablet ORAL TWICE DAILY Mirabegron (Myrbetriq) 50 MG TAB.ER.24H 25 Milligram ORAL DAILY Start taking the following new medications: Oxycodone HCl (Roxicodone) 5 MG TABLET 1-2 Tablet ORAL EVERY 4-6 HOURS NEEDED as needed for PAIN Qty = 30 No Refills Copies To: Elizabeth SALES,Arnold Ricketts
[2017-12-18 14:06] VITALS: BP 140/80
[2017-12-18 14:33] VITALS: BP 140/80
[2018-01-07] MEDS ORDERED: PERCOCET 5-3251 EACH PO (19:43)
== END 2017-12-18 17:05 | DRG 460 ==
LOC: ERH 09:52 → ERHI 13:07 → 2NA 13:07 → ENRESERV 13:38 → ENTRNSPT 14:51 → EDTRNSPTSTS 15:04 → EDTRNSPT 15:04 → 2NA 15:15 → CMPTRNSPT 15:34 → DELTRNSPT 12-13 20:03 → ENTRNSPT 12-13 20:04 → EDTRNSPTSTS 12-13 20:16 → CMPTRNSPT 12-13 20:33 → ENPENDDIS 12-18 08:39 → 2NA 12-18 17:05
PROVIDERS: Physician Assistant; Physician Assistant Surgical
PROC: 01N80ZZ Release Thoracic Nerve, Open Approach (ICD-10-PCS; principal; 2017-12-13)
PROC: 0RB90ZZ Excision of Thoracic Vertebral Disc, Open Approach (ICD-10-PCS; principal; 2017-12-13)
PROC: 0RG6071 Fusion of Thoracic Vertebral Joint with Autologous Tissue Substitute, Posterior Approach, Posterior Column, Open Approach (ICD-10-PCS; principal; 2017-12-13)
DX: M51.25 Other intervertebral disc displacement, thoracolumbar region (principal); N31.8 Other neuromuscular dysfunction of bladder; K59.8 Other specified functional intestinal disorders; N39.498 Other specified urinary incontinence; R20.8 Other disturbances of skin sensation; I10 Essential (primary) hypertension; Z79.84 Long term (current) use of oral hypoglycemic drugs; K21.9 Gastro-esophageal reflux disease without esophagitis; F31.9 Bipolar disorder, unspecified; E03.9 Hypothyroidism, unspecified; E21.3 Hyperparathyroidism, unspecified; G47.33 Obstructive sleep apnea (adult) (pediatric); M51.05 Intervertebral disc disorders with myelopathy, thoracolumbar region; Z68.38 Body mass index [BMI] 38.0-38.9, adult; M47.892 Other spondylosis, cervical region; M47.894 Other spondylosis, thoracic region; M47.895 Other spondylosis, thoracolumbar region; M47.897 Other spondylosis, lumbosacral region; K59.09 Other constipation; M54.15 Radiculopathy, thoracolumbar region; Z88.8 Allergy status to other drugs, medicaments and biological substances; Z96.641 Presence of right artificial hip joint; Z96.651 Presence of right artificial knee joint; F41.9 Anxiety disorder, unspecified; G47.00 Insomnia, unspecified; Z79.82 Long term (current) use of aspirin; Z79.891 Long term (current) use of opiate analgesic; Z98.1 Arthrodesis status; Z91.81 History of falling; N40.0 Benign prostatic hyperplasia without lower urinary tract symptoms; F12.90 Cannabis use, unspecified, uncomplicated; I25.10 Atherosclerotic heart disease of native coronary artery without angina pectoris; E11.9 Type 2 diabetes mellitus without complications; M51.04 Intervertebral disc disorders with myelopathy, thoracic region; E66.9 Obesity, unspecified
CPT/HCPCS: 2NASP; 36592; 71046; 72070; 82436; 88304; 93005; 93010; 93970; 97110-GO; 97116-GO; 97162-GP; 97166-GO; J0131; J0690; J1100; J1644; J7042; J7508

== ENCOUNTER 2017-12-25 12:42 | Emergency (ER) | payer OTHER, MEDICARE ==
[~2017-12-25] VITALS: Ht 172.7 cm; Wt 108.0 kg
[~2017-12-25 12:42] MED LIST changes: +METFORMIN HCL500 M3 PO; +METOPROLOL SUC200 M2 PO; +MYRBETRIQ50 M1 PO; +ROXICODONE5 M1 PO; +VALIUM5 M2 PO
--- NOTE | 2017-12-25 12:48 | ED UPPER/LOWER EXTREMITY COMPL ---
History of Present Illness General Chief Complaint: Hip Injury Stated Complaint: BIBA HIP INJURY Source: patient, old records Exam Limitations: no limitations Vital Signs & Intake/Output Vital Signs & Intake/Output Vital Signs Date Time Temp Pulse Resp B/P B/P Pulse O2 O2 Flow FiO2 Mean Ox Delivery Rate 12/25 1455 98.8 70 20 129/65 99 Room Air / 1440 74 20 140/70 98 Room Air 12/25 1425 70 20 150/64 98 Room Air 12/25 1410 98.7 62 20 138/65 99 Nasal 2.0L Cannula 12/25 1405 76 20 136/63 100 Nasal 2.0L Cannula 12/25 1400 98.4 70 20 140/80 100 Nasal 2.0L Cannula 12/25 1244 98.8 86 18 131/74 100 Room Air Allergies Coded Allergies: furosemide (Severe, ANAPHYLAXIS 07/22/16) amlodipine (UNKNOWN 07/22/16) Reconcile Medications Bumetanide 1 MG TABLET 1 TAB PO DAILY EDEMA (Reported) Cephalexin 500 MG CAPSULE 1 CAP PO 4 TIMES/DAY ANTIBIOTIC, INFECTION ( Reported) Cyanocobalamin (Vitamin B-12) (Cyanocobalamin Injection) 1,000 MCG/ML VIAL 1 ML IM Q30D HEALTH SUPPLEMENT (Reported) Desipramine HCl 100 MG TABLET 1 TAB PO BID MENTAL HEALTH (Reported) Irbesartan (Avapro) 300 MG TABLET 1 TAB PO DAILY BP (Reported) Levothyroxine Sodium 125 MCG TABLET 1 TAB PO DAILY AC THYROID (Reported) [place] Carbonate 300 MG TABLET 2 TAB PO QHS MENTAL HEALTH (Reported) Lorazepam (Ativan) 2 MG TABLET 0.5 TAB PO TID ANXIETY (Reported) Metformin HCl 500 MG TABLET 1 TAB PO BID DM (Reported) Metoprolol Succinate 200 MG TAB.ER.24H 1 TAB PO DAILY HEART (Reported) Mirabegron (Myrbetriq) 50 MG TAB.ER.24H 25 MG PO DAILY BPH (Reported) Omeprazole 40 MG CAPSULE.DR 1 CAP PO DAILY GERD (Reported) Oxycodone HCl (Roxicodone) 5 MG TABLET 1-2 TAB PO Q4-6 PRN PRN PAIN Sennosides/Docusate Sodium (Senna S Tablet) 8.6 MG-50 MG TABLET 2 TAB PO QPM CONSTIPATION (Reported) Tamsulosin HCl (Flomax) 0.4 MG CAP.ER.24H 1 CAP PO 1800 (Reported) Trazodone HCl 300 MG TABLET 1 TAB PO QPM PRN SLEEP (Reported) Venlafaxine HCl (Venlafaxine HCl ER) 150 MG CAP.ER.24H 2 CAP PO DAILY DEPRESSION (Reported) Triage Note: PER EMS PT GOING FROM BED TO CHAIR FELT A POP IN RT HIP XR CONFIRMED DISLOCATION PT WITH HX OF SAME.. Triage Nurses Notes Reviewed? yes Onset: Abrupt Duration: constant Timing: single episode today Severity: severe Severity Numbers: 8 HPI: Patient is a 62-year-old male with a past medical history of right prosthetic total hip replacement approximately 4 years ago who is also established patient with orthopedic Arnold Johnson MD in which she is status post 12/12/2017 of a thoracic laminectomy and fusion where he was in his normal state of health today and which she was weight transferring to a wheelchair and twisting his lower extremity where he had acute onset of sharp stabbing severe right localized hip pain and concerns of hip dislocation or patient has a history of hip dislocation to his left prosthetic hip. Patient was brought in by ambulance. Denies any knee or ankle pain. Patient's past medical history also includes hypertension and hyperlipidemia obstructive sleep apnea, GERD anxiety depression hypothyroidism. Patient last ate breakfast approximately 4 hours ago patient received x-ray at [facility] in which it is noted that there is concerned of right hip arthroplasty with lateral and superior dislocation in which the pubic rami and both hip joints are without acute fracture. The prosthetic for femoral head is properly situated relative to the femoral shaft. (Mukul CANNON,Kamron) Past History Travel History Traveled to [place] past 21 day No Medical History Any Pertinent Medical History? see below for history Neurological: NONE EENT: NONE Cardiovascular: hypertension, hyperlipidemia Respiratory: obstructive sleep apnea Gastrointestinal: GERD Hepatic: NONE Renal: NONE Musculoskeletal: MULTIPLE BACK SX RT HIP REPLACEMENT RT KNEE REPLACEMENT LT SHOULDER SX BILAT CARPAL TUNNEL SX Psychiatric: anxiety, depression, insomnia Endocrine: hypothyroidism Blood Disorders: NONE Cancer(s): PROSTATE CANCER History of MRSA: No History of VRE: No History of CDIFF: No Tetanus Vaccine: 04/22/16 Surgical History Surgical History: R TOTAL HIP T TOTAL KNEE L SHOULDER ROTATOR CUFF PARATHYROIDECTOMY LUMBAR FUSION left reverse shoulder knee arthroscopies CARPAL TUNNEL R ANKLE Psychosocial History Who do you live with Significant Other Services at Home None What is your primary language Sinhala Tobacco Use: Quit >30 days ago Family History Hx Contributory? No (Kamron Robert) Review of Systems Review of Systems Constitutional: Reports: no symptoms. EENTM: Reports: no symptoms. Respiratory: Reports: no symptoms. Cardiovascular: Reports: no symptoms. Gastrointestinal/Abdominal: Reports: no symptoms. Genitourinary: Reports: no symptoms. Musculoskeletal: Reports: see HPI, joint pain. Skin: Reports: no symptoms. Neurological/Psychological: Reports: no symptoms. Hematologic/Endocrine: Reports: no symptoms. Immunological: Reports: no symptoms. All Other Systems: Reviewed and Negative (Kamron Robert) Physical Exam Physical Exam General Appearance: no apparent distress, obese Head: atraumatic Eyes: Bilateral: normal appearance. Ears, Nose, Throat: hearing grossly normal Neck: normal inspection Cardiovascular/Respiratory: no respiratory distress Peripheral Pulses: 2+ dorsalis pedis (R) Neurologic/Tendon: normal sensation, normal tendon functions, responds to pain, no evidence tendon injury, no pulse deficit Skin: intact, normal color Comments: Right lower extremity noted shortening compared bilaterally generalized right hip point tenderness patient unable to actively range hip flexion. Right lower extremity dermatomes intact capillary refill less than 2 seconds pedal pulse +2 (Kamron Robert) Progress Differential Diagnosis: arterial insufficiency, contusion, dislocation, DVT, fracture, gout, septic arthritis, sprain, tendon injury Plan of Care: Orders Procedure Date/time Status XRY-HIP 2-3 VIEWS, RIGHT 12/25 1403 Active Patient on initial presentation was neurovascularly intact to right lower extremities. There is concerns of right hip dislocation On initial x-rays there is also concerns of suspecting prosthetic impairment in which Dr. KWON was aware of the x-ray however under his supervision and Dr. ZHONG supervision patient was consciously sedated with fentanyl and etomidate reduction was performed by me post procedure or vascular of right lower extremity was intact Patient tolerated well I will call Dr. KWON for x-rays are resulted I discussed x-ray results and patient with orthopedic Dr. Hoover who states that patient has a follow-up appointment tomorrow with Dr. Johnson at their office in which he will discuss the plan with patient and most likely patient will require a revision of his right hip. Dr. Hoover advised patient to be placed on the hip cautions weightbearing as tolerated I placed AND GAVE a hip abduction pillow to patient. Discussed disposition plan with DR ZHONG WHO AGREES. I discussed the x-ray results with patient of the mechanical impairment of the prosthetic hip in which he was aware Diagnostic Imaging: Viewed by Me: Radiology Read. Radiology Impression: acute abnormality Comments: PATIENT: GEORGE VAN PRESENT AGE: 62 PATIENT ACCOUNT NO: [id number] : 56 LOCATION: ER ORDERING PHYSICIAN: Kamron CANNON SERVICE DATE: 12/25/17140 EXAM TYPE: RAD - XRY-HIP 2-3 VIEWS, RIGHT EXAMINATION: XR HIP, RIGHT CLINICAL INFORMATION: Status post reduction of right hip. COMPARISON: None TECHNIQUE: Two views of the right hip. FINDINGS: The dislocation of the constrained right hip arthroplasty has been reduced with the femoral head now positioned within the acetabulum. The metallic locking ring is noted overlying the femoral neck I do not see a fracture. IMPRESSION: The previously noted hip dislocation has been reduced. I do not see a fracture. The metallic locking ring is noted overlying the femoral neck DICTATED BY: George Ruiz MD DATE/TIME DICTATED:12/25/171515 VIRTUAL CUSTOMER ASSISTANT:HERMES DATE/TIME TRANSCRIBED:12/25/17 PATIENT: SELWYN WELLINGTON PRESENT AGE: 69 PATIENT ACCOUNT NO: [id number] : [birth year] LOCATION: [facility] ORDERING PHYSICIAN: Kamron CANNON SERVICE DATE: 12/25/17 EXAM TYPE: RAD - XRY-WRIST COMPLETE-LEFT EXAMINATION: XR WRIST, LEFT CLINICAL INFORMATION: Pain. COMPARISON: None TECHNIQUE: PA, lateral, oblique, and scaphoid views of the left wrist. FINDINGS: Bony alignment and mineralization are normal. There is a neutral ulnar variance. The proximal and distal carpal rows are intact. No acute fracture or dislocation is seen. There is moderate osteoarthritic change of the articulation between the trapezium and the navicular. A tiny soft tissue calcification is incidentally noted in the lateral soft tissues of the left wrist. No foreign body is seen. There is no soft tissue swelling. IMPRESSION: 1. No acute fracture or dislocation is seen. 2. 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 DICTATED BY: Arnoldo Cummings MD DATE/TIME DICTATED:05/09/18 / 1250 VIRTUAL CUSTOMER ASSISTANT:HERMES DATE/TIME TRANSCRIBED:12/25/17 / 1250 (Kamron Robert) Departure Departure Disposition: ACUTE REHAB FACILITY Condition: Stable Clinical Impression Primary Impression: Hip dislocation, right Secondary Impressions: Mechanical complication of prosthetic hip implant Referrals: Diamond Riley APRN (PCP/Family) Additional Instructions: As discussed follow-up with your established orthopedic doctor tomorrow with Arnold Johnson MD for further evaluation treatment. Continue home medications as directed. Please provide your facility with the W-10, provided to you in the emergency room. Continue hip cautions if symptoms worsen return to emergency room. Weightbearing is tolerated always use a walker for fall prevention Departure Forms: Customer Survey General Discharge Information (Kamron Robert) Departure Comments 12/25/17 I saw and personally examined the patient and moderate sedation and reduction was done under my direct supervision. The patient tolerated the procedure well. (Petey Zhong DO) Procedures Joint Reduction Joint Reduction Site: hip (R) Conscious Sedation: performed by me Reduction Attempts: 1 Pre-Procedure NV Exam: Yes Post-Procedure NV Exam: Yes Post Joint Reduction Film: joint reduced (Kamron Robert)
[2017-12-25] MEDS ORDERED: CEPHALEXIN500 M3 PO (12:58)
[2017-12-25] MEDS ORDERED: SENNA S TABLET1 EACH PO (13:00)
--- NOTE | 2017-12-25 13:31 | RADIOLOGY REPORT ---
EXAMINATION: XR HIP, RIGHT CLINICAL INFORMATION: Presumptive diagnosis: Right hip prosthetic dislocation. COMPARISON: None recent. TECHNIQUE: Coned-down AP and crosstable lateral views of the right hip. FINDINGS: This exam confirms a posterior superior dislocation of the right hip replacement. There is no apparent fracture. Portions of a lower posterior spinal fusion are visualized. IMPRESSION: Posterior dislocation of the right total hip replacement.
--- NOTE | 2017-12-25 15:36 | RADIOLOGY REPORT ---
EXAMINATION: XR HIP, RIGHT CLINICAL INFORMATION: Status post reduction of right hip. COMPARISON: None TECHNIQUE: Two views of the right hip. FINDINGS: The dislocation of the constrained right hip arthroplasty has been reduced with the femoral head now positioned within the acetabulum. The metallic locking ring is noted overlying the femoral neck I do not see a fracture. IMPRESSION: The previously noted hip dislocation has been reduced. I do not see a fracture. The metallic locking ring is noted overlying the femoral neck
[2017-12-25 16:03] VITALS: BP 125/58
== END 2017-12-25 16:23 ==
LOC: ERH 12:42
DX: M24.351 Pathological dislocation of right hip, not elsewhere classified (principal)
CPT/HCPCS: 73502-RT; 96374; 96375

== ENCOUNTER 2018-01-15 08:17 | Emergency (ER) | payer OTHER, MEDICARE ==
[~2018-01-15] VITALS: Ht 172.7 cm; Wt 114.3 kg
[~2018-01-15 08:17] MED LIST changes: +SENNA S TABLET1 EACH PO
[2018-01-15 08:28] VITALS: BP 142/82
--- NOTE | 2018-01-15 09:01 | ED UPPER/LOWER EXTREMITY COMPL ---
History of Present Illness General Chief Complaint: Lower Extremity Problems Stated Complaint: ? CELLULITS LOWER EXT Source: patient Exam Limitations: no limitations Vital Signs & Intake/Output Vital Signs & Intake/Output Vital Signs Date Time Temp Pulse Resp B/P B/P Pulse O2 O2 Flow FiO2 Mean Ox Delivery Rate 01/15 0828 97.6 68 20 142/82 97 Room Air Allergies Coded Allergies: furosemide (Severe, ANAPHYLAXIS 07/22/16) amlodipine (UNKNOWN 07/22/16) Reconcile Medications Bumetanide 1 MG TABLET 1 TAB PO DAILY EDEMA (Reported) Cephalexin 500 MG CAPSULE 1 CAP PO 4 TIMES/DAY ANTIBIOTIC, INFECTION ( Reported) Cyanocobalamin (Vitamin B-12) (Cyanocobalamin Injection) 1,000 MCG/ML VIAL 1 ML IM Q30D HEALTH SUPPLEMENT (Reported) Desipramine HCl 100 MG TABLET 1 TAB PO BID MENTAL HEALTH (Reported) Hydrochlorothiazide 12.5 MG TABLET 1 TAB PO DAILY LEG EDEMA Irbesartan (Avapro) 300 MG TABLET 1 TAB PO DAILY BP (Reported) Levothyroxine Sodium 125 MCG TABLET 1 TAB PO DAILY AC THYROID (Reported) [place] Carbonate 300 MG TABLET 2 TAB PO QHS MENTAL HEALTH (Reported) Lorazepam (Ativan) 2 MG TABLET 0.5 TAB PO TID ANXIETY (Reported) Metformin HCl 500 MG TABLET 1 TAB PO BID DM (Reported) Metoprolol Succinate 200 MG TAB.ER.24H 1 TAB PO DAILY HEART (Reported) Mirabegron (Myrbetriq) 50 MG TAB.ER.24H 25 MG PO DAILY BPH (Reported) Omeprazole 40 MG CAPSULE.DR 1 CAP PO DAILY GERD (Reported) Oxycodone HCl (Roxicodone) 5 MG TABLET 1-2 TAB PO Q4-6 PRN PRN PAIN Oxycodone HCl/Acetaminophen (Percocet 5-325 MG Tablet) 5 MG-325 MG TABLET 1 TAB PO BID PRN PAIN Sennosides/Docusate Sodium (Senna S Tablet) 8.6 MG-50 MG TABLET 2 TAB PO QPM CONSTIPATION (Reported) Tamsulosin HCl (Flomax) 0.4 MG CAP.ER.24H 1 CAP PO 1800 (Reported) Trazodone HCl 300 MG TABLET 1 TAB PO QPM PRN SLEEP (Reported) Venlafaxine HCl (Venlafaxine HCl ER) 150 MG CAP.ER.24H 2 CAP PO DAILY DEPRESSION (Reported) Triage Note: SIB DR CARO FOR ? CELLULITIS BLE. PT STATES HE HAD B/L U/S YESTERDAY TO CHECK FOR CLOTS. HASN'T GOTTEN THE RESULTS YET Triage Nurses Notes Reviewed? yes Onset: Abrupt Duration: week(s): (4), constant, continues in ED Timing: recent history No Modifying Factors: none HPI: 62-year-old male comes into emergency room for further evaluation of leg swelling. Patient reports that he has chronic swelling in his legs. He reports increased swelling over the last 4 weeks especially in the left leg. Denies any chest pain shortness of breath. Denies any history of liver disease or kidney disease. He reports that he had bilateral ultrasounds of his legs done yesterday by his PCP. He was told to come in for further evaluation today for questionable cellulitis. He denies any fever chills. Denies any redness. Denies any trauma to his legs. Denies any open wounds. (Edmond Rojo) Past History Travel History Traveled to [place] past 21 day No Medical History Any Pertinent Medical History? see below for history Neurological: NONE EENT: NONE Cardiovascular: hypertension, hyperlipidemia Respiratory: obstructive sleep apnea Gastrointestinal: GERD Hepatic: NONE Renal: NONE Musculoskeletal: MULTIPLE BACK SX RT HIP REPLACEMENT RT KNEE REPLACEMENT LT SHOULDER SX BILAT CARPAL TUNNEL SX Psychiatric: anxiety, depression, insomnia Endocrine: hypothyroidism Blood Disorders: NONE Cancer(s): PROSTATE CANCER History of MRSA: No History of VRE: No History of CDIFF: No Tetanus Vaccine: 04/22/16 Surgical History Surgical History: R TOTAL HIP T TOTAL KNEE L SHOULDER ROTATOR CUFF PARATHYROIDECTOMY LUMBAR FUSION left reverse shoulder knee arthroscopies CARPAL TUNNEL R ANKLE Psychosocial History Who do you live with Significant Other Services at Home None What is your primary language Mohawk Tobacco Use: Never used ETOH Use: denies use Illicit Drug Use: denies illicit drug use Family History Hx Contributory? No (Edmond Rojo) Review of Systems Review of Systems Constitutional: Reports: no symptoms. EENTM: Reports: no symptoms. Respiratory: Reports: no symptoms. Cardiovascular: Reports: no symptoms. Gastrointestinal/Abdominal: Reports: no symptoms. Genitourinary: Reports: no symptoms. Musculoskeletal: Reports: see HPI. Skin: Reports: no symptoms. Neurological/Psychological: Reports: no symptoms. Hematologic/Endocrine: Reports: no symptoms. Immunological: Reports: no symptoms. All Other Systems: Reviewed and Negative (Edmond Rojo) Physical Exam Physical Exam General Appearance: well developed/nourished, mild distress Head: atraumatic Eyes: Bilateral: normal appearance. Ears, Nose, Throat: normal ENT inspection, hearing grossly normal Neck: normal inspection Cardiovascular/Respiratory: normal breath sounds, regular rate/rhythm, no respiratory distress Back: normal inspection Leg Left: One plus pitting edema, no erythema, no warmth, no open wounds, no discharge, dorsalis pedis pulses 2+, cap refill less than 2 seconds in all toes, foot is warm and pink, Leg Right: One plus pitting edema, no erythema, no warmth, no open wounds, no discharge, dorsalis pedis pulses 2+, cap refill less than 2 seconds in all toes, foot is warm and pink, Neurologic/Tendon: normal sensation, normal motor functions, normal tendon functions, responds to pain, no evidence tendon injury, no pulse deficit Skin: intact, normal color, warm/dry (Edmond Rojo) Progress Differential Diagnosis: cellulitis, CHF, DVT, Serrano's cyst, dependent edema, kidney failure, liver cirrhosis Plan of Care: 01/15/2018 9:56:59 AM Upon reviewing the patient's ultrasound from yesterday no evidence of DVT. Serrano's cyst in left knee. Patient has no current signs of infection. Patient has pulses bilateral and no signs of ischemia. He has no cardiac or pulmonary complaints. Increased swelling in the left leg is likely related to Serrano's cyst. There is no appreciable difference in the legs bilaterally on exam. Patient was recommended to follow up with his PCP and orthopedic doctor. Elevate legs. Return if any other concerns. Patient started on a low-dose diuretic for a few days. (Edmond Rojo) Departure Departure Disposition: HOME OR SELF CARE Condition: Stable Clinical Impression Primary Impression: Serrano's cyst of knee Secondary Impressions: Leg edema Referrals: Diamond Caro APRN (PCP/Family) Additional Instructions: Elevate your legs. Pickup compression stockings. Take hydrochlorothiazide as prescribed. Return if any chest pain shortness of breath or any other concerns worsening symptoms. Follow-up with orthopedic doctor. Please go over all results of today's visit with your primary care doctor. Contact your primary care doctor to let them know you were here in the emergency room. There may be nonspecific findings which may not be related to your visit today here in the emergency room but may require further evaluation and chronic monitoring by your primary care doctor. If you had a laceration today the chance of foreign body always remains. You should follow-up with your primary care doctor for recheck in 3-5 days for a wound check. If you had an x-ray done there is a chance that a fracture could have been missed on initial read and you should follow-up with your primary care doctor for repeat x-rays if symptoms persist. If your blood pressure was elevated here in the emergency room please have rechecked by chichi primary care doctor within the next 48. If you were prescribed a narcotic here in the emergency room or any type of controlled substances you're not allowed to drive while taking this medication or operate any type of heavy machinery. Narcotics can make you feel lightheaded dizziness nausea and can cause constipation. You may need to pickle maker a stool softener. Thank you for choosing emergency room. Please return to the emergency room immediately if you have any other concerns worsening of symptoms. Departure Forms: Customer Survey General Discharge Information Prescriptions: Current Visit Scripts Hydrochlorothiazide 1 TAB PO DAILY #5 TAB (Edmond Rojo) PA/SKIN DIVER Co-Sign Statement Statement: ED Attending supervision documentation- [] I saw and evaluated the patient. I have also reviewed all the pertinent lab results and diagnostic results. I agree with the findings and the plan of care as documented in the PA's/SKIN DIVER's documentation. [x] I have reviewed the ED Record and agree with the PA's/SKIN DIVER's documentation. [] Additions or exceptions (if any) to the PAs/SKIN DIVER's note and plan are summarized below: [] (Rex Eisenberg DO)
[2018-01-15] MEDS ORDERED: HYDROCHLOROTH12.5 M2 PO (09:03)
== END 2018-01-15 09:07 ==
LOC: ERH 08:17
DX: M71.22 Synovial cyst of popliteal space [Baker], left knee (principal); R60.9 Edema, unspecified